=== PATIENT | female | born 1965 | race Caucasian/White ===

== ENCOUNTER 2016-09-25 14:23 | Emergency (ER) | payer MEDICAID ==
--- NOTE | 2016-09-25 14:57 | Emergency Department Record ---
History of Present Illness - General Chief Complaint: General Stated Complaint: WITHDRAWALS FROM ALCOHOL Time Seen by Provider: 09/25/16 14:56 Source: Patient Mode of Arrival: Ambulatory Limitations: No limitations - History of Present Illness Initial comments: The patient is here due to stating she needs some Ativan due to her stopping her normal chronic alcohol intake. She states she normally drinks about a fifth of liquor a day and last had a drink about 3 days ago. Now she is feeling slightly nauseated and is concerned she may go into withdrawal. She did quite drinking about a month ago and had no issues with withdrawal. She denies any hallucinations, tremors, vomiting, CP or SOB. Onset/Timin -: Days(s) - [place] Coma Scale Eye Response: (4) Open spontaneously Motor Response: (6) Obeys commands Verbal Response: (5) Oriented [place] Total: 15 - Related Data Home Medications Medication Instructions Recorded Confirmed Last Taken Glimepiride 6 mg PO DAILY 02/01/14 09/25/16 12/26/15 Metformin HCl 1,000 mg PO BID 02/01/14 09/25/16 12/26/15 Esomeprazole Magnesium [Nexium] 40 mg PO QAM 04/26/14 09/25/16 12/25/15 Insulin Detemir [Levemir] 40 unit SQ QAM 04/26/14 09/25/16 12/26/15 Insulin Regular, Human [Humulin R] 1 unit SC TIDAC 04/26/14 09/25/16 11/30/15 Lisinopril [Prinivil] 20 mg PO DAILY 04/26/14 09/25/16 12/26/15 Spironolactone [Aldactone] 50 mg PO BID 04/26/14 09/25/16 12/26/15 Propranolol HCl [Inderal LA] 120 mg PO BID 05/16/14 09/25/16 12/26/15 Insulin Detemir [Levemir] 65 units SQ QHS 04/05/15 09/25/16 12/25/15 Topiramate [Topamax] 150 mg PO BID 04/05/15 09/25/16 12/26/15 Exenatide Microspheres [Bydureon] 2 mg SQ Q7D vial 01/07/16 09/25/16 Unknown Apixaban [Eliquis] 5 mg PO DAILY 06/18/16 09/25/16 Unknown Topiramate [Topiramate] 50 mg PO DAILY 06/18/16 09/25/16 Unknown Venlafaxine HCl [Effexor Xr] 75 mg PO DAILY 09/25/16 09/25/16 Unknown Previous Rx's Medication Instructions Recorded Lorazepam [Ativan] 1 mg PO BID #5 tablet 09/25/16 Allergies Allergy/AdvReac Type Severity Reaction Status Date / Time gabapentin [From Neurontin] Allergy Intermediate HYPERSENSIT Verified 08/11/16 21:07 IVITY diphenhydramine Allergy Unknown HYPERSENSIT Verified 08/11/16 21:07 [DIPHENHYDRAMINE] IVITY Penicillins [PENICILLINS] Allergy Unknown HIVES Verified 08/11/16 21:07 [id number] Antimigraine Allergy Unknown HYPERSENSIT Verified 08/11/16 21:07 Agents IVITY [[id number] ANTIMIGRAINE AGENTS] cortisone Allergy ITCHING Verified 08/11/16 21:07 dicyclomine HCl [From Bentyl] AdvReac Intermediate BEHAVIORAL Verified 08/11/16 21:07 CHANGES ketorolac tromethamine AdvReac Intermediate ITCHING Verified 08/11/16 21:07 [From Toradol] Sulfa (Sulfonamide AdvReac Intermediate ITCHING Verified 08/11/16 21:07 Antibiotics) Travel Screening - Travel/Exposure Within Last 30 Days Have you traveled within the last 30 days?: No Review of Systems Constitutional: Denies: Chills, Fever Eyes: Denies: Eye discharge ENT: Denies: Congestion Respiratory: Denies: Cough, Dyspnea Cardiovascular: Denies: Chest pain Past Medical History - SOCIAL HISTORY Smoking Status: Light tobacco smoker (<10/day) Alcohol Use Comment: alcoholic Drug Use: None - RESPIRATORY Hx Respiratory Disorders: Yes Hx Pulmonary Embolism: Yes - CARDIOVASCULAR Hx Cardio Disorders: Yes Hx Palpitations: Yes - NEURO Hx Neuro Disorders: Yes Hx Dizziness: Yes Hx Headaches: Yes (migraines) Hx Seizures: (unsure of, being tested for) - GI Hx GI Disorders: Yes Hx Reflux: Yes - Hx Genitourinary Disorders: No - ENDOCRINE Hx Endocrine Disorders: Yes Hx Diabetes: Yes (type II) Hx Thyroid Disease: No - MUSCULOSKELETAL Hx Musculoskeletal Disorders: Yes Comment:: rib was out of place - PSYCH Hx Psych Problems: Yes Hx Anxiety: Yes Hx Depression: Yes - HEMATOLOGY/ONCOLOGY Hx Hematology/Oncology Disorders: Yes Hx Anemia: Yes (approx 2001) Hx Blood Transfusions: Yes Hx Blood Transfusion Reaction: No Family Medical History Any Significant Family History?: Yes Hx Diabetes: Father, Brother/Sister Hx Heart Disease: Father Physical Exam - General General Appearance: Alert, Oriented x3, Cooperative, No acute distress (The patient is very calm and cooperative and does not have any shakes or tremors.) - Head Head exam: Atraumatic, Normocephalic, Normal inspection - Eye Eye exam: Normal appearance, PERRL - ENT Throat exam: Normal inspection. negative: Tonsillar erythema, Tonsillar exudate - Neck Neck exam: Normal inspection, Full ROM. negative: Tenderness - Respiratory Respiratory exam: Normal lung sounds bilaterally. negative: Respiratory distress - Cardiovascular Cardiovascular Exam: Regular rate, Normal rhythm, Normal heart sounds - GI/Abdominal GI/Abdominal exam: Soft, Normal bowel sounds. negative: Tenderness - Extremities Extremities exam: Normal inspection, Full ROM, Normal capillary refill. negative: Tenderness - Neurological Neurological exam: Alert, Normal gait, Oriented X3. negative: Abnormal gait, Motor sensory deficit - Psychiatric Psychiatric exam: negative: Agitated, Anxious, Depressed, Flat affect, Homicidal ideation Course Vital Signs 09/25/16 14:39 Temperature 98.1 F Pulse Rate 76 Respiratory 18 Rate Blood Pressure 142/77 Pulse Ox 97 - Reevaluation(s) Reevaluation #1: The patient is doing very well at this time. She denies any tremors, nausea or vomiting. She is ambulating normally and feels ready for discharge. 09/25/16 16:08 Medical Decision Making - Data Complexity MDM Data: Labs Ordered and/or Reviewed - Lab Data Result diagrams: 09/25/16 15:35 09/25/16 15:35 Disposition Disposition: Discharge Clinical Impression: Anxiety Disposition: Home, Self-Care Condition: (1) Good Instructions: Anxiety (ED) Additional Instructions: Please continue your regular medicines and monitor your blood sugar daily. Take the Ativan as directed. Please see your PCP for recheck next week as planned. Return to the ER for any problems. Prescriptions: Lorazepam [Ativan] 1 mg PO BID #5 tablet Forms: Patient Portal Access Time of Disposition: 16:10
[2016-09-25] MEDS: LORAZEPAM 0.5 MG TABLET PO ONE (15:31)
[2016-09-25 16:01] LABS: ALB/GLOB RATIO 1.6 (1.1-1.8); ALKALINE PHOSPHATASE 86 U/L (38-126); ALT/SGPT 29 U/L (9-52); ANION GAP 10.1 (7-16); AST/SGOT 20 U/L (14-36); BILIRUBIN,TOTAL 0.16 mg/dL (0.2-1.3); BLOOD UREA NITROGEN 11 mg/dL (7-17); CARBON DIOXIDE 19.9 mmol/L (22-30); CREATININE 0.7 mg/dL (0.52-1.04); EST GLOMERULAR FILTRATION RATE > 60 ml/min; GLUCOSE,RANDOM 347 mg/dL (70-110); TOTAL PROTEIN 6.5 gm/dL (6.3-8.2)
[2016-09-25 16:02] LABS: BASO % 0.3 % (0-6); EOS % 0.9 % (0-6); GRAN % 65.3 % (47-80); HEMATOCRIT 38.4 % (35.0-47.0); HEMOGLOBIN 12.1 gm/dl (11.6-16.0); LYMPH % 24.6 % (16-45); MEAN CELL VOLUME 90.6 fl (81-97); MEAN CORPUSCULAR HEMOGLOBIN 28.5 pg (27-33); MEAN CORPUSCULAR HGB CONC 31.5 g/dl (32-36); MEAN PLATELET VOLUME 9.8 fl (7.4-10.4); MONO % 8.9 % (0-9); PLATELET COUNT 319 K/uL (130-400); RED BLOOD COUNT 4.24 M/uL (3.80-5.40); RED CELL DISTRIBUTION WIDTH 15.9 % (11.5-14.5); WHITE BLOOD COUNT W/O DIFF 7.4 K/uL (4.2-12.2)
== END 2016-09-25 16:19 | disposition home or self-care (01) ==
LOC: ER 14:23
DX: F41.9 Anxiety disorder, unspecified (principal); R11.0 Nausea; E11.9 Type 2 diabetes mellitus without complications; Z79.4 Long term (current) use of insulin; F10.20 Alcohol dependence, uncomplicated
CPT/HCPCS: 99283 ×2; 85025; 80053; G0480; 80320

== ENCOUNTER 2016-10-18 16:56 | Emergency (ER) | payer MEDICAID ==
[2016-10-18 17:49] LABS: BASO % 0.3 % (0-6); EOS % 2.9 % (0-6); GRAN % 61.8 % (47-80); HEMATOCRIT 38.9 % (35.0-47.0); HEMOGLOBIN 12.5 gm/dl (11.6-16.0); MEAN CELL VOLUME 86.8 fl (81-97); MEAN CORPUSCULAR HEMOGLOBIN 27.9 pg (27-33); MEAN CORPUSCULAR HGB CONC 32.1 g/dl (32-36); MEAN PLATELET VOLUME 9.1 fl (7.4-10.4); PLATELET COUNT 338 K/uL (130-400); RED BLOOD COUNT 4.48 M/uL (3.80-5.40); RED CELL DISTRIBUTION WIDTH 15.4 % (11.5-14.5); WHITE BLOOD COUNT W/O DIFF 5.8 K/uL (4.2-12.2)
[2016-10-18 18:02] LABS: ALB/GLOB RATIO 1.4 (1.1-1.8); ALBUMIN 4.2 gm/dL (3.5-5.0); ALKALINE PHOSPHATASE 80 U/L (38-126); ALT/SGPT 20 U/L (9-52); ANION GAP 18.1 (7-16); AST/SGOT 14 U/L (14-36); BLOOD UREA NITROGEN 17 mg/dL (7-17); CARBON DIOXIDE 22.9 mmol/L (22-30); CREATININE 0.7 mg/dL (0.52-1.04); EST GLOMERULAR FILTRATION RATE > 60 ml/min; GLUCOSE,RANDOM 173 mg/dL (70-110); TOTAL PROTEIN 7.1 gm/dL (6.3-8.2)
--- NOTE | 2016-10-18 18:02 | Emergency Department Record ---
History of Present Illness - General Chief Complaint: Slurred speech Stated Complaint: SPEECH SLURRING Time Seen by Provider: 10/18/16 17:34 Source: Patient Mode of Arrival: Ambulatory - History of Present Illness Initial Comments: Assumed care at 6 p.m due to shift change. Patient states she is here because she was told she was having difficulty walking straight and was slurring her speech. She states she was unaware of this and denies taking any medications in excess. She currently denies fierro, visions changes, cp, ab, asael. She does states she is very thirsty. Awaiting CT results of her head. Onset/Timin -: Hour(s) Location: Speech Improves With: None Treatments Prior to Arrival: None - [place] Coma Scale Eye Response: (4) Open spontaneously Motor Response: (6) Obeys commands Verbal Response: (4) Confused conversation [place] Total: 14 - Symptoms of Stroke Onset of Symptoms Date: 10/18/16 Onset of Symptoms Time: 13:00 Symptoms of stroke: Dizziness, Slurred Speech, Unable to Think Clearly, Unsteady When Walking - Related Data Home Medications: Home Medications Medication Instructions Recorded Confirmed Last Taken Glimepiride 6 mg PO DAILY 02/01/14 10/18/16 1 Day Ago Metformin HCl 1,000 mg PO BID 02/01/14 10/18/16 1 Day Ago Esomeprazole Magnesium [Nexium] 40 mg PO QAM 04/26/14 10/18/16 1 Day Ago Insulin Detemir [Levemir] 40 unit SQ QAM 04/26/14 10/18/16 1 Day Ago Insulin Regular, Human [Humulin R] 1 unit SC TIDAC 04/26/14 10/18/16 1 Day Ago Lisinopril [Prinivil] 20 mg PO DAILY 04/26/14 10/18/16 1 Day Ago Spironolactone [Aldactone] 50 mg PO DAILY 04/26/14 10/18/16 1 Day Ago Propranolol HCl [Inderal LA] 120 mg PO BID 05/16/14 10/18/16 1 Day Ago Insulin Detemir [Levemir] 65 units SQ QHS 04/05/15 10/18/16 1 Day Ago Topiramate [Topamax] 150 mg PO BID 04/05/15 10/18/16 1 Day Ago Exenatide Microspheres [Bydureon] 2 mg SQ Q7D vial 01/07/16 10/18/16 1 Day Ago Apixaban [Eliquis] 5 mg PO DAILY 06/18/16 10/18/16 1 Day Ago Venlafaxine HCl [Effexor Xr] 75 mg PO DAILY 09/25/16 10/18/16 1 Day Ago Amlodipine Besylate [Norvasc] 10 mg PO DAILY 10/18/16 10/18/16 1 Day Ago Atorvastatin Calcium [Lipitor] 20 mg PO DAILY 10/18/16 10/18/16 1 Day Ago Chlorthalidone 50 mg PO DAILY 10/18/16 10/18/16 1 Day Ago Clonidine Tts-2 [Catapres Tts-2] 1 patch TOP Q7D 10/18/16 10/18/16 1 Day Ago Famotidine [Pepcid] 40 mg PO DAILY 10/18/16 10/18/16 1 Day Ago Hydrocodone/Acetaminophen 1 - 2 tab PO Q6H PRN 10/18/16 10/18/16 1 Day Ago [Hydrocodone/Acetaminophen 5mg/325mg] Loratadine [Allergy] 10 mg PO DAILY 10/18/16 10/18/16 1 Day Ago Phenylephrine HCl [Nasal Rusk] 30 ml NS DAILY 10/18/16 10/18/16 1 Day Ago Trazodone HCl 100 mg PO QHS 10/18/16 10/18/16 1 Day Ago Previous Rx's Medication Instructions Recorded Lorazepam [Ativan] 1 mg PO BID #5 tablet 09/25/16 Allergies/Adverse Reactions: Allergies Allergy/AdvReac Type Severity Reaction Status Date / Time gabapentin [From Neurontin] Allergy Intermediate HYPERSENSIT Verified 10/18/16 17:49 IVITY diphenhydramine Allergy Unknown HYPERSENSIT Verified 10/18/16 17:49 [DIPHENHYDRAMINE] IVITY Penicillins [PENICILLINS] Allergy Unknown HIVES Verified 10/18/16 17:49 [id number] Antimigraine Allergy Unknown HYPERSENSIT Verified 10/18/16 17:49 Agents IVITY [[id number] ANTIMIGRAINE AGENTS] cortisone Allergy ITCHING Verified 10/18/16 17:49 metoclopramide Allergy HYPERSENSIT Verified 10/18/16 17:50 IVITY promethazine Allergy HYPERSENSIT Verified 10/18/16 17:50 IVITY trimethoprim Allergy ITCHING Verified 10/18/16 17:50 dicyclomine HCl [From Bentyl] AdvReac Intermediate BEHAVIORAL Verified 10/18/16 17:49 CHANGES ketorolac tromethamine AdvReac Intermediate ITCHING Verified 10/18/16 17:49 [From Toradol] Sulfa (Sulfonamide AdvReac Intermediate ITCHING Verified 10/18/16 17:49 Antibiotics) cephalexin AdvReac VOMITING Verified 10/18/16 17:50 Travel Screening - Travel/Exposure Within Last 30 Days Have you traveled within the last 30 days?: No - Travel/Exposure Within Last Year Have you traveled outside the [place] in the last year?: No - Additonal Travel Details Have you been exposed to anyone with a communicable illness?: No - Travel Symptoms Symptom Screening: None Review of Systems Reviewed: No additional complaints except as noted below Constitutional: Reports: As per HPI. Denies: Chills, Fever, Malaise, Night sweats, Weakness, Weight change Eyes: Reports: As per HPI. Denies: Eye discharge, Eye pain, Photophobia, Vision change ENT: Reports: As per HPI. Denies: Congestion, Dental pain, Ear pain, Epistaxis , Hearing loss, Throat pain Respiratory: Reports: As per HPI. Denies: Cough, Dyspnea, Hemoptysis, Stridor, Wheezes Cardiovascular: Reports: As per HPI. Denies: Arrhythmia, Chest pain, Dyspnea on exertion, Edema, Murmurs, Orthopnea, Palpitations, Paroxysmal nocturnal dyspnea, Rheumatic Fever, Syncope Endocrine: Reports: As per HPI. Denies: Fatigue, Heat or cold intolerance, Polydipsia, Polyuria Gastrointestinal: Reports: As per HPI. Denies: Abdominal pain, Constipation, Diarrhea, Hematemesis, Hematochezia, Melena, Nausea, Vomiting Genitourinary: Reports: As per HPI. Denies: Abnormal menses, Discharge, Dyspareunia, Dysuria, Frequency, Hematuria, Incontinence, Retention, Urgency Musculoskeletal: Reports: As per HPI. Denies: Arthralgia, Back pain, Gout, Joint swelling, Myalgia, Neck pain Skin: Reports: As per HPI. Denies: Bruising, Change in color, Change in hair/ nails, Lesions, Pruritus, Rash Neurological: Reports: As per HPI. Denies: Abnormal gait, Confusion, Headache, Numbness, Paresthesias, Seizure, Tingling, Tremors, Vertigo, Weakness Psychiatric: Reports: As per HPI. Denies: Anxiety, Auditory hallucinations, Depression, Homicidal thoughts, Suicidal thoughts, Visual hallucinations Hematological/Lymphatic: Reports: As per HPI. Denies: Anemia, Blood Clots, Easy bleeding, Easy bruising, Swollen glands Past Medical History - SOCIAL HISTORY Smoking Status: Light tobacco smoker (<10/day) Alcohol Use: None Drug Use: None - RESPIRATORY Hx Respiratory Disorders: Yes Hx Pulmonary Embolism: Yes - CARDIOVASCULAR Hx Cardio Disorders: Yes Hx Palpitations: Yes - NEURO Hx Neuro Disorders: Yes Hx Dizziness: Yes Hx Headaches: Yes (migraines) Hx Seizures: (unsure of, being tested for) - GI Hx GI Disorders: Yes Hx Reflux: Yes - Hx Genitourinary Disorders: No - ENDOCRINE Hx Endocrine Disorders: Yes Hx Diabetes: Yes (type II) Hx Thyroid Disease: No - MUSCULOSKELETAL Hx Musculoskeletal Disorders: Yes Comment:: rib was out of place - PSYCH Hx Psych Problems: Yes Hx Anxiety: Yes Hx Depression: Yes - HEMATOLOGY/ONCOLOGY Hx Hematology/Oncology Disorders: Yes Hx Anemia: Yes (approx 2001) Hx Blood Transfusions: Yes Hx Blood Transfusion Reaction: No Family Medical History Any Significant Family History?: Yes Hx Diabetes: Father, Brother/Sister Hx Heart Disease: Father Physical Exam - General General Appearance: Alert, Oriented x3, Cooperative, No acute distress (mouth seems very dry and her slurring of speech is very mild and intermittent.) - Head Head exam: Normal inspection - Eye Eye exam: Normal appearance, PERRL Pupils: Normal accommodation - ENT ENT exam: Normal exam, Mucous membranes moist, Normal external ear exam, Normal orophraynx, TM's normal bilaterally Ear exam: Normal external inspection. negative: External canal tenderness Nasal Exam: Normal inspection. negative: Discharge, Sinus tenderness Mouth exam: Normal external inspection, Tongue normal Teeth exam: Normal inspection. negative: Dental caries Throat exam: Normal inspection. negative: Tonsillar erythema, Tonsillar exudate - Neck Neck exam: Normal inspection, Full ROM. negative: Tenderness - Respiratory Respiratory exam: Normal lung sounds bilaterally. negative: Respiratory distress - Cardiovascular Cardiovascular Exam: Regular rate, Normal rhythm, Normal heart sounds - GI/Abdominal GI/Abdominal exam: Soft, Normal bowel sounds. negative: Tenderness - Rectal Rectal exam: Deferred - exam: Deferred - Extremities Extremities exam: Normal inspection, Full ROM, Normal capillary refill. negative: Tenderness - Back Back exam: Reports: Normal inspection, Full ROM. Denies: Muscle spasm, Rash noted, Tenderness - Neurological Neurological exam: Alert, CN II-XII intact, Oriented X3, Reflexes normal - Psychiatric Psychiatric exam: Normal affect, Normal mood - Skin Skin exam: Dry, Intact, Normal color, Warm Course Vital Signs 10/18/16 17:02 Temperature 97.9 F Pulse Rate 81 Respiratory 18 Rate Blood Pressure 99/53 Pulse Ox 98 - Reevaluation(s) Reevaluation #1: Patient is sitting upright on cart dry heaving in basin. Zofran ordered. IV fluids infusing. Patient again denies taking any MAP's type medications. 10/18/16 19:26 Reevaluation #2: Patient ambulated to bathroom without difficulty with a normal gait. IV liter almost complete. UDS shows opiates and tricyclics in her urine. Son aware. HE was advised to lock up her medications and distribute them to her in a controlled fashion, or else have a responsible delegated person do this. 10/18/16 20:01 10/18/16 20:03 Reevaluation #3: The patient states Dr. Patel (sp?) used to be her Dr. but she abused prescriptions and is no longer her physician. 10/18/16 20:19 Medical Decision Making - Management Options MDM Management: No Additional Work-up Planned - Data Complexity MDM Data: Labs Ordered and/or Reviewed, EKG Ordered and/or Reviewed (per Dr. Ellis EKG isnormal and unchanged from prior.) - Lab Data Result diagrams: 10/18/16 17:25 10/18/16 17:25 Lab Results 10/18/16 10/18/16 10/18/16 Range/Units 17:25 17:25 17:25 WBC 5.8 (4.2-12.2) K/uL RBC 4.48 (3.80-5.40) M/uL Hgb 12.5 (11.6-16.0) gm/dl Hct 38.9 (35.0-47.0) % MCV 86.8 (81-97) fl MCH 27.9 (27-33) pg MCHC 32.1 (32-36) g/dl RDW 15.4 H (11.5-14.5) % Plt Count 338 (130-400) K/uL MPV 9.1 (7.4-10.4) fl Gran % 61.8 (47-80) % Lymphocytes % 25.0 (16-45) % Monocytes % 10.0 H (0-9) % Eosinophils % 2.9 (0-6) % Basophils % 0.3 (0-6) % VBG pH 7.3 L (7.32-7.41) POC Glucose 149 H (70-110) mg/dL - EKG Data EKG: Normal EKG Disposition Disposition: Discharge Clinical Impression: Prescription drug abuse, Slurring of speech Disposition: Home, Self-Care Condition: (1) Good Instructions: Polysubstance Abuse (ED) Additional Instructions: Have medications given in a controlled manner and documented by family or medical personnel. Take medications only as prescribed. Follow up with PCP. Give physician referral list. Forms: Patient Portal Access
[2016-10-18] MEDS ORDERED: 0.9 % SODIUM CHLORIDE 1,000 ML BAG IV ONE (18:30)
[2016-10-18] MEDS ORDERED: ONDANSETRON HCL IV 4 MG/2 ML VIAL IVP ONE (19:24)
[2016-10-18 19:46] LABS: URINE APPEARANCE CLEAR; URINE BILIRUBIN NEGATIVE (NEGATIVE); URINE BLOOD NEGATIVE (NEGATIVE); URINE COLOR YELLOW; URINE GLUCOSE (UA) NEGATIVE (NEGATIVE); URINE KETONE NEGATIVE (NEGATIVE); URINE LEUKOCYTE ESTERASE NEGATIVE (NEGATIVE); URINE NITRITE NEGATIVE (NEGATIVE); URINE PROTEIN NEGATIVE (NEGATIVE); URINE UROBILINOGEN 0.2 E.U./dL (0.20 - 1.00)
[2016-10-18 19:58] LABS: AMPHETAMINE SCREEN URINE NOT DETECTED; BARBITURATE SCREEN URINE NOT DETECTED; BENZODIAZEPINE SCREEN URINE NOT DETECTED; COCAINE SCREEN URINE NOT DETECTED; METHADONE SCREEN URINE NOT DETECTED; METHAMPHETAMINE SCREEN NOT DETECTED; OPIATE SCREEN URINE DETECTED; OXYCODONE SCREEN URINE NOT DETECTED; PHENCYCLIDINE SCREEN URINE NOT DETECTED; PROPOXYPHENE SCREEN URINE NOT DETECTED; THC SCREEN URINE NOT DETECTED; TRICYCLIC ANTIDEPRESSANT SCRN DETECTED
--- NOTE | 2016-10-19 07:20 | Emergency Department Record ---
History of Present Illness - General Chief Complaint: Slurred speech Stated Complaint: SPEECH SLURRING Time Seen by Provider: 10/18/16 17:34 Source: Patient Mode of Arrival: Ambulatory Limitations: No limitations - History of Present Illness Initial Comments: pt brought in by son for slurred speech. pt states she has had a cough and has taken cough and cold meds. Onset/Timin -: Hour(s) Location: Speech History of same: Yes (hx of overmedication) Severity: Mild Quality: Improving Improves With: None Context: Other (started 8 hrs ago) Treatments Prior to Arrival: None - [place] Coma Scale Eye Response: (4) Open spontaneously Motor Response: (6) Obeys commands Verbal Response: (4) Confused conversation [place] Total: 14 - Symptoms of Stroke Onset of Symptoms Date: 10/18/16 Onset of Symptoms Time: 13:00 Symptoms of stroke: Dizziness, Slurred Speech, Unable to Think Clearly, Unsteady When Walking - Related Data Home Medications: Home Medications Medication Instructions Recorded Confirmed Last Taken Glimepiride 6 mg PO DAILY 02/01/14 10/18/16 1 Day Ago Metformin HCl 1,000 mg PO BID 02/01/14 10/18/16 1 Day Ago Esomeprazole Magnesium [Nexium] 40 mg PO QAM 04/26/14 10/18/16 1 Day Ago Insulin Detemir [Levemir] 40 unit SQ QAM 04/26/14 10/18/16 1 Day Ago Insulin Regular, Human [Humulin R] 1 unit SC TIDAC 04/26/14 10/18/16 1 Day Ago Lisinopril [Prinivil] 20 mg PO DAILY 04/26/14 10/18/16 1 Day Ago Spironolactone [Aldactone] 50 mg PO DAILY 04/26/14 10/18/16 1 Day Ago Propranolol HCl [Inderal LA] 120 mg PO BID 05/16/14 10/18/16 1 Day Ago Insulin Detemir [Levemir] 65 units SQ QHS 04/05/15 10/18/16 1 Day Ago Topiramate [Topamax] 150 mg PO BID 04/05/15 10/18/16 1 Day Ago Exenatide Microspheres [Bydureon] 2 mg SQ Q7D vial 01/07/16 10/18/16 1 Day Ago Apixaban [Eliquis] 5 mg PO DAILY 06/18/16 10/18/16 1 Day Ago Venlafaxine HCl [Effexor Xr] 75 mg PO DAILY 09/25/16 10/18/16 1 Day Ago Amlodipine Besylate [Norvasc] 10 mg PO DAILY 10/18/16 10/18/16 1 Day Ago Atorvastatin Calcium [Lipitor] 20 mg PO DAILY 10/18/16 10/18/16 1 Day Ago Chlorthalidone 50 mg PO DAILY 10/18/16 10/18/16 1 Day Ago Clonidine Tts-2 [Catapres Tts-2] 1 patch TOP Q7D 10/18/16 10/18/16 1 Day Ago Famotidine [Pepcid] 40 mg PO DAILY 10/18/16 10/18/16 1 Day Ago Hydrocodone/Acetaminophen 1 - 2 tab PO Q6H PRN 10/18/16 10/18/16 1 Day Ago [Hydrocodone/Acetaminophen 5mg/325mg] Loratadine [Allergy] 10 mg PO DAILY 10/18/16 10/18/16 1 Day Ago Phenylephrine HCl [Nasal [place]] 30 ml NS DAILY 10/18/16 10/18/16 1 Day Ago Trazodone HCl 100 mg PO QHS 10/18/16 10/18/16 1 Day Ago Previous Rx's Medication Instructions Recorded Lorazepam [Ativan] 1 mg PO BID #5 tablet 09/25/16 Allergies/Adverse Reactions: Allergies Allergy/AdvReac Type Severity Reaction Status Date / Time gabapentin [From Neurontin] Allergy Intermediate HYPERSENSIT Verified 10/18/16 17:49 IVITY diphenhydramine Allergy Unknown HYPERSENSIT Verified 10/18/16 17:49 [DIPHENHYDRAMINE] IVITY Penicillins [PENICILLINS] Allergy Unknown HIVES Verified 10/18/16 17:49 [id number] Antimigraine Allergy Unknown HYPERSENSIT Verified 10/18/16 17:49 Agents IVITY [[id number] ANTIMIGRAINE AGENTS] cortisone Allergy ITCHING Verified 10/18/16 17:49 metoclopramide Allergy HYPERSENSIT Verified 10/18/16 17:50 IVITY promethazine Allergy HYPERSENSIT Verified 10/18/16 17:50 IVITY trimethoprim Allergy ITCHING Verified 10/18/16 17:50 dicyclomine HCl [From Bentyl] AdvReac Intermediate BEHAVIORAL Verified 10/18/16 17:49 CHANGES ketorolac tromethamine AdvReac Intermediate ITCHING Verified 10/18/16 17:49 [From Toradol] Sulfa (Sulfonamide AdvReac Intermediate ITCHING Verified 10/18/16 17:49 Antibiotics) cephalexin AdvReac VOMITING Verified 10/18/16 17:50 Travel Screening - Travel/Exposure Within Last 30 Days Have you traveled within the last 30 days?: No - Travel/Exposure Within Last Year Have you traveled outside the [place] in the last year?: No - Additonal Travel Details Have you been exposed to anyone with a communicable illness?: No - Travel Symptoms Symptom Screening: None Review of Systems Reviewed: No additional complaints except as noted below Constitutional: Reports: As per HPI. Denies: Chills, Fever, Malaise, Night sweats, Weakness, Weight change Eyes: Reports: As per HPI. Denies: Eye discharge, Eye pain, Photophobia, Vision change ENT: Reports: As per HPI. Denies: Congestion, Dental pain, Ear pain, Epistaxis , Hearing loss, Throat pain Respiratory: Reports: As per HPI. Denies: Cough, Dyspnea, Hemoptysis, Stridor, Wheezes Cardiovascular: Reports: As per HPI. Denies: Arrhythmia, Chest pain, Dyspnea on exertion, Edema, Murmurs, Orthopnea, Palpitations, Paroxysmal nocturnal dyspnea, Rheumatic Fever, Syncope Endocrine: Reports: As per HPI. Denies: Fatigue, Heat or cold intolerance, Polydipsia, Polyuria Gastrointestinal: Reports: As per HPI. Denies: Abdominal pain, Constipation, Diarrhea, Hematemesis, Hematochezia, Melena, Nausea, Vomiting Genitourinary: Reports: As per HPI. Denies: Abnormal menses, Discharge, Dyspareunia, Dysuria, Frequency, Hematuria, Incontinence, Retention, Urgency Musculoskeletal: Reports: As per HPI. Denies: Arthralgia, Back pain, Gout, Joint swelling, Myalgia, Neck pain Skin: Reports: As per HPI. Denies: Bruising, Change in color, Change in hair/ nails, Lesions, Pruritus, Rash Neurological: Reports: As per HPI. Denies: Abnormal gait, Confusion, Headache, Numbness, Paresthesias, Seizure, Tingling, Tremors, Vertigo, Weakness Psychiatric: Reports: As per HPI. Denies: Anxiety, Auditory hallucinations, Depression, Homicidal thoughts, Suicidal thoughts, Visual hallucinations Hematological/Lymphatic: Reports: As per HPI. Denies: Anemia, Blood Clots, Easy bleeding, Easy bruising, Swollen glands Past Medical History - SOCIAL HISTORY Smoking Status: Light tobacco smoker (<10/day) Alcohol Use: None Drug Use: None - RESPIRATORY Hx Respiratory Disorders: Yes Hx Pulmonary Embolism: Yes - CARDIOVASCULAR Hx Cardio Disorders: Yes Hx Palpitations: Yes - NEURO Hx Neuro Disorders: Yes Hx Dizziness: Yes Hx Headaches: Yes (migraines) Hx Seizures: (unsure of, being tested for) - GI Hx GI Disorders: Yes Hx Reflux: Yes - Hx Genitourinary Disorders: No - ENDOCRINE Hx Endocrine Disorders: Yes Hx Diabetes: Yes (type II) Hx Thyroid Disease: No - MUSCULOSKELETAL Hx Musculoskeletal Disorders: Yes Comment:: rib was out of place - PSYCH Hx Psych Problems: Yes Hx Anxiety: Yes Hx Depression: Yes - HEMATOLOGY/ONCOLOGY Hx Hematology/Oncology Disorders: Yes Hx Anemia: Yes (approx 2001) Hx Blood Transfusions: Yes Hx Blood Transfusion Reaction: No Family Medical History Any Significant Family History?: Yes Hx Diabetes: Father, Brother/Sister Hx Heart Disease: Father Physical Exam - General General Appearance: Alert, Oriented x3, Cooperative, Mild distress - Head Head exam: Normal inspection - Eye Eye exam: Normal appearance, PERRL, EOMI Pupils: Normal accommodation - ENT ENT exam: Normal exam, Mucous membranes moist, Normal external ear exam, Normal orophraynx Ear exam: Normal external inspection. negative: External canal tenderness Nasal Exam: Normal inspection. negative: Discharge, Sinus tenderness Mouth exam: Normal external inspection, Tongue normal Teeth exam: Normal inspection. negative: Dental caries Throat exam: Normal inspection. negative: Tonsillar erythema, Tonsillar exudate - Neck Neck exam: Normal inspection, Full ROM. negative: Tenderness - Respiratory Respiratory exam: Normal lung sounds bilaterally. negative: Respiratory distress - Cardiovascular Cardiovascular Exam: Regular rate, Normal rhythm, Normal heart sounds - GI/Abdominal GI/Abdominal exam: Soft, Normal bowel sounds. negative: Tenderness - Rectal Rectal exam: Deferred - exam: Deferred - Extremities Extremities exam: Normal inspection, Full ROM, Normal capillary refill. negative: Tenderness - Back Back exam: Reports: Normal inspection, Full ROM. Denies: Muscle spasm, Rash noted, Tenderness - Neurological Neurological exam: Alert, CN II-XII intact, Normal gait, Oriented X3, Other ( slurring speech) - Psychiatric Psychiatric exam: Normal affect, Normal mood - Skin Skin exam: Dry, Intact, Normal color, Warm Course Vital Signs 10/18/16 10/18/16 10/18/16 17:02 18:23 20:49 Temperature 97.9 F Pulse Rate 81 87 Pulse Rate [ 83 Pulse Ox Probe] Respiratory 18 22 18 Rate Blood Pressure 99/53 107/66 Blood Pressure 103/64 [Right Arm] Pulse Ox 98 94 L 96 - Reevaluation(s) Reevaluation #1: 10/19/16 07:26 care turned over [address] dr porter at 6:15pm Medical Decision Making - Lab Data Result diagrams: 10/18/16 17:25 10/18/16 17:25 Lab Results 10/18/16 10/18/16 10/18/16 Range/Units 17:25 17:25 17:25 WBC 5.8 (4.2-12.2) K/uL RBC 4.48 (3.80-5.40) M/uL Hgb 12.5 (11.6-16.0) gm/dl Hct 38.9 (35.0-47.0) % MCV 86.8 (81-97) fl MCH 27.9 (27-33) pg MCHC 32.1 (32-36) g/dl RDW 15.4 H (11.5-14.5) % Plt Count 338 (130-400) K/uL MPV 9.1 (7.4-10.4) fl Gran % 61.8 (47-80) % Lymphocytes % 25.0 (16-45) % Monocytes % 10.0 H (0-9) % Eosinophils % 2.9 (0-6) % Basophils % 0.3 (0-6) % VBG pH 7.3 L (7.32-7.41) Sodium 136 (136-145) mmol/L Potassium 3.7 (3.5-5.1) mmol/L Chloride 95 L (98-107) mmol/L Carbon Dioxide 22.9 (22-30) mmol/L Anion Gap 18.1 H (7-16) BUN 17 (7-17) mg/dL Creatinine 0.7 (0.52-1.04) mg/dL Estimated GFR > 60 ml/min POC Glucose (70-110) mg/dL Random Glucose 173 H (70-110) mg/dL Calcium 9.5 (8.5-10.1) mg/dL Total Bilirubin 0.10 L (0.2-1.3) mg/dL AST 14 (14-36) U/L ALT 20 (9-52) U/L Alkaline Phosphatase 80 (38-126) U/L Total Protein 7.1 (6.3-8.2) gm/dL Albumin 4.2 (3.5-5.0) gm/dL Globulin 2.9 (1.4-4.8) gm/dL Albumin/Globulin Ratio 1.4 (1.1-1.8) Urine Color Urine Appearance Urine pH (5.0-8.0) Ur Specific [place] (1.002-1.030) Urine Protein (NEGATIVE) Urine Glucose (UA) (NEGATIVE) Urine Ketones (NEGATIVE) Urine Blood (NEGATIVE) Urine Nitrite (NEGATIVE) Urine Bilirubin (NEGATIVE) Urine Urobilinogen (0.20 - 1.00) E.U./dL Ur Leukocyte Esterase (NEGATIVE) Urine Opiates Screen Ur Oxycodone Screen Urine Methadone Screen Ur Propoxyphene Screen Ur Barbituates Screen Ur Tricyclics Screen Ur Phencyclidine Scrn Ur Amphetamine Screen U Methamphetamines Scrn U Benzodiazepines Scrn Urine Cocaine Screen Urine Cannabis Screen 10/18/16 10/18/16 10/18/16 Range/Units 17:25 19:35 19:35 WBC (4.2-12.2) K/uL RBC (3.80-5.40) M/uL Hgb (11.6-16.0) gm/dl Hct (35.0-47.0) % MCV (81-97) fl MCH (27-33) pg MCHC (32-36) g/dl RDW (11.5-14.5) % Plt Count (130-400) K/uL MPV (7.4-10.4) fl Gran % (47-80) % Lymphocytes % (16-45) % Monocytes % (0-9) % Eosinophils % (0-6) % Basophils % (0-6) % VBG pH (7.32-7.41) Sodium (136-145) mmol/L Potassium (3.5-5.1) mmol/L Chloride (98-107) mmol/L Carbon Dioxide (22-30) mmol/L Anion Gap (7-16) BUN (7-17) mg/dL Creatinine (0.52-1.04) mg/dL Estimated GFR ml/min POC Glucose 149 H (70-110) mg/dL Random Glucose (70-110) mg/dL Calcium (8.5-10.1) mg/dL Total Bilirubin (0.2-1.3) mg/dL AST (14-36) U/L ALT (9-52) U/L Alkaline Phosphatase (38-126) U/L Total Protein (6.3-8.2) gm/dL Albumin (3.5-5.0) gm/dL Globulin (1.4-4.8) gm/dL Albumin/Globulin Ratio (1.1-1.8) Urine Color Yellow Urine Appearance Clear Urine pH 7.0 (5.0-8.0) Ur Specific [place] 1.010 (1.002-1.030) Urine Protein Negative (NEGATIVE) Urine Glucose (UA) Negative (NEGATIVE) Urine Ketones Negative (NEGATIVE) Urine Blood Negative (NEGATIVE) Urine Nitrite Negative (NEGATIVE) Urine Bilirubin Negative (NEGATIVE) Urine Urobilinogen 0.2 (0.20 - 1.00) E.U./dL Ur Leukocyte Esterase Negative (NEGATIVE) Urine Opiates Screen Detected Ur Oxycodone Screen Not detected Urine Methadone Screen Not detected Ur Propoxyphene Screen Not detected Ur Barbituates Screen Not detected Ur Tricyclics Screen Detected Ur Phencyclidine Scrn Not detected Ur Amphetamine Screen Not detected U Methamphetamines Scrn Not detected U Benzodiazepines Scrn Not detected Urine Cocaine Screen Not detected Urine Cannabis Screen Not detected Disposition Clinical Impression: Prescription drug abuse, Slurring of speech Disposition: Home, Self-Care Condition: (1) Good Instructions: Polysubstance Abuse (ED) Additional Instructions: Have medications given in a controlled manner and documented by family or medical personnel. Take medications only as prescribed. Follow up with PCP. Give physician referral list. Forms: Patient Portal Access
--- NOTE | 2016-10-23 08:56 | CT SCAN REPORT ---
EXAM: CT SCAN OF THE BRAIN WITHOUT CONTRAST HISTORY: CONFUSION AND SLURRED SPEECH TODAY. MENTAL STATUS CHANGES. TECHNIQUE: Standard CT imaging of the brain was performed in the axial plane without contrast. Additional coronal and sagittal reformatted images were also performed. Comparison: 10/04/15. FINDINGS: The ventricles and subarachnoid spaces are normal. There is no mass , mass effect, intracranial hemorrhage, visible acute infarct, or abnormal extraaxial fluid. The skull is intact. The orbits, sinuses, and mastoids are normal. IMPRESSION: NEGATIVE NONCONTRAST CT SCAN OF THE BRAIN. JOB NUMBER: [id number] MTDD
== END 2016-10-18 20:52 | disposition home or self-care (01) ==
LOC: ER 16:56
DX: F11.129 Opioid abuse with intoxication, unspecified (principal); F19.129 Other psychoactive substance abuse with intoxication, unspecified; R47.81 Slurred speech; R05 Cough; R42 Dizziness and giddiness; R26.2 Difficulty in walking, not elsewhere classified; E11.9 Type 2 diabetes mellitus without complications; Z79.4 Long term (current) use of insulin; F17.210 Nicotine dependence, cigarettes, uncomplicated; Z79.899 Other long term (current) drug therapy
CPT/HCPCS: 99284 ×2; 96374; 82800; 85025; 80048; 80053; 36416; 82948; 81003; 70450; 93005; 93010; G0477; J2405

== ENCOUNTER 2016-12-02 15:23 | Emergency (ER) | payer MEDICAID ==
[2016-12-02] MEDS ORDERED: HYDROCODONE/APAP 7.5/325MG TABLET PO ONE (15:35)
--- NOTE | 2016-12-02 15:41 | Emergency Department Record ---
History of Present Illness - General Chief Complaint: Fall Injury Stated Complaint: fall Time Seen by Provider: 12/02/16 15:34 Source: Patient Mode of Arrival: Ambulatory Limitations: No limitations - History of Present Illness Initial Comments: 51 yo female presents after tripping as she stepped on to her porch. She landed forward injuring her left shoulder and both knees. She did not hit her head or face but her right #3 filling fell out. She did not hit her chin or jaw. No abrasions to the face or head. She has bruising on both knees. She denies any new chest, abdominal or back pain. No neck pain. She does have left sided rib fractures from about 2-3 months ago. She had been admitted to [facility] at that time. Her pain from the ribs comes and goes. It is mild today. MD Complaint: Fall Onset/Timin -: Minutes(s) Fall From: Standing When Fall Occurred: Just prior to arrival Fall Witnessed: No Place Fall Occurred: Home Loss of Consciousness: None Prolonged Down Time?: No Symptoms Prior to Fall: None Location - Extremities: Left: Shoulder, Knee, Right: Knee Severity: Moderate Severity scale (1-10): 9 Quality: Aching Associated Symptoms: Denies - [place] Coma Scale Eye Response: (4) Open spontaneously Motor Response: (6) Obeys commands Verbal Response: (5) Oriented [place] Total: 15 - Related Data Home Medications Medication Instructions Recorded Confirmed Last Taken Glimepiride 6 mg PO DAILY 02/01/14 12/02/16 1 Day Ago Metformin HCl 1,000 mg PO BID 02/01/14 12/02/16 1 Day Ago Esomeprazole Magnesium [Nexium] 40 mg PO QAM 04/26/14 12/02/16 1 Day Ago Insulin Detemir [Levemir] 40 unit SQ QAM 04/26/14 12/02/16 1 Day Ago Insulin Regular, Human [Humulin R] 1 unit SC TIDAC 04/26/14 12/02/16 1 Day Ago Lisinopril [Prinivil] 20 mg PO DAILY 04/26/14 12/02/16 1 Day Ago Spironolactone [Aldactone] 50 mg PO DAILY 04/26/14 12/02/16 1 Day Ago Propranolol HCl [Inderal LA] 120 mg PO BID 05/16/14 12/02/16 1 Day Ago Insulin Detemir [Levemir] 65 units SQ QHS 04/05/15 12/02/16 1 Day Ago Topiramate [Topamax] 150 mg PO BID 04/05/15 12/02/16 1 Day Ago Exenatide Microspheres [Bydureon] 2 mg SQ Q7D vial 01/07/16 12/02/16 1 Day Ago Apixaban [Eliquis] 5 mg PO DAILY 06/18/16 12/02/16 1 Day Ago Venlafaxine HCl [Effexor Xr] 75 mg PO DAILY 09/25/16 12/02/16 1 Day Ago Amlodipine Besylate [Norvasc] 10 mg PO DAILY 10/18/16 12/02/16 1 Day Ago Atorvastatin Calcium [Lipitor] 20 mg PO DAILY 10/18/16 12/02/16 1 Day Ago Chlorthalidone 50 mg PO DAILY 10/18/16 12/02/16 1 Day Ago Clonidine Tts-2 [Catapres Tts-2] 1 patch TOP Q7D 10/18/16 12/02/16 1 Day Ago Famotidine [Pepcid] 40 mg PO DAILY 10/18/16 12/02/16 1 Day Ago Loratadine [Allergy] 10 mg PO DAILY 10/18/16 12/02/16 1 Day Ago Phenylephrine HCl [Nasal [place]] 30 ml NS DAILY 10/18/16 12/02/16 1 Day Ago Trazodone HCl 100 mg PO QHS 10/18/16 12/02/16 1 Day Ago Previous Rx's Medication Instructions Recorded Lorazepam [Ativan] 1 mg PO BID #5 tablet 09/25/16 Hydrocodone/Acetaminophen [[place] 1 tab PO Q8H PRN #20 tab 12/02/16 5mg/325mg] Allergies Allergy/AdvReac Type Severity Reaction Status Date / Time gabapentin [From Neurontin] Allergy Intermediate HYPERSENSIT Verified 12/02/16 15:35 IVITY diphenhydramine Allergy Unknown HYPERSENSIT Verified 12/02/16 15:35 [DIPHENHYDRAMINE] IVITY Penicillins [PENICILLINS] Allergy Unknown HIVES Verified 12/02/16 15:35 [id number] Antimigraine Allergy Unknown HYPERSENSIT Verified 12/02/16 15:35 Agents IVITY [[id number] ANTIMIGRAINE AGENTS] cortisone Allergy ITCHING Verified 12/02/16 15:35 metoclopramide Allergy HYPERSENSIT Verified 12/02/16 15:35 IVITY promethazine Allergy HYPERSENSIT Verified 12/02/16 15:35 IVITY trimethoprim Allergy ITCHING Verified 12/02/16 15:35 dicyclomine HCl [From Bentyl] AdvReac Intermediate BEHAVIORAL Verified 12/02/16 15:35 CHANGES ketorolac tromethamine AdvReac Intermediate ITCHING Verified 12/02/16 15:35 [From Toradol] Sulfa (Sulfonamide AdvReac Intermediate ITCHING Verified 12/02/16 15:35 Antibiotics) cephalexin AdvReac VOMITING Verified 12/02/16 15:35 Travel Screening - Travel/Exposure Within Last 30 Days Have you traveled within the last 30 days?: No - Travel/Exposure Within Last Year Have you traveled outside the [place] in the last year?: No - Additonal Travel Details Have you been exposed to anyone with a communicable illness?: No - Travel Symptoms Symptom Screening: None Review of Systems Constitutional: Denies: Chills, Fever, Weakness Eyes: Denies: Eye discharge ENT: Denies: Congestion, Throat pain Respiratory: Denies: Cough, Dyspnea, Hemoptysis, Stridor, Wheezes Cardiovascular: Denies: Chest pain, Palpitations, Syncope Endocrine: Denies: Fatigue Gastrointestinal: Denies: Abdominal pain, Diarrhea, Nausea, Vomiting Musculoskeletal: Reports: As per HPI, Arthralgia, Joint swelling. Denies: Back pain, Myalgia, Neck pain Skin: Reports: Bruising (knees). Denies: Rash Neurological: Denies: Abnormal gait, Confusion, Headache, Numbness, Paresthesias , Tingling, Tremors, Vertigo, Weakness Psychiatric: Denies: Anxiety Hematological/Lymphatic: Denies: Anemia, Blood Clots, Easy bleeding, Easy bruising, Swollen glands Past Medical History - SOCIAL HISTORY Smoking Status: Current every day smoker Alcohol Use: None Drug Use: None - RESPIRATORY Hx Respiratory Disorders: Yes Hx Pulmonary Embolism: Yes - CARDIOVASCULAR Hx Cardio Disorders: Yes Hx Palpitations: Yes - NEURO Hx Neuro Disorders: Yes Hx Dizziness: Yes Hx Headaches: Yes (migraines) Hx Seizures: (unsure of, being tested for) - GI Hx GI Disorders: Yes Hx Reflux: Yes - Hx Genitourinary Disorders: No - ENDOCRINE Hx Endocrine Disorders: Yes Hx Diabetes: Yes (type II) Hx Thyroid Disease: No - MUSCULOSKELETAL Hx Musculoskeletal Disorders: Yes Comment:: rib was out of place - PSYCH Hx Psych Problems: Yes Hx Anxiety: Yes Hx Depression: Yes - HEMATOLOGY/ONCOLOGY Hx Hematology/Oncology Disorders: Yes Hx Anemia: Yes (approx 2001) Hx Blood Transfusions: Yes Hx Blood Transfusion Reaction: No Family Medical History Any Significant Family History?: Yes Hx Diabetes: Father, Brother/Sister Hx Heart Disease: Father Physical Exam - General General Appearance: Alert, Oriented x3, Cooperative, No acute distress Limitations: No limitations - Head Head exam: Atraumatic, Normocephalic, Normal inspection Head exam detail: Other (No visible or palpable injury to the head or face). negative: Abrasion, Contusion, General tenderness, Hematoma, Laceration - Eye Eye exam: Normal appearance, PERRL, EOMI. negative: Conjunctival injection, Periorbital swelling, Periorbital tenderness - ENT ENT exam: Normal exam, Mucous membranes moist, Normal external ear exam, Normal orophraynx, TM's normal bilaterally Ear exam: Normal external inspection. negative: External canal tenderness Nasal Exam: Normal inspection. negative: Discharge, Sinus tenderness Mouth exam: Normal external inspection, Tongue normal Teeth exam: Dental tenderness # (3missing filling). negative: Normal inspection Throat exam: Normal inspection. negative: Tonsillar erythema, Tonsillar exudate - Neck Neck exam: Normal inspection, Full ROM. negative: Tenderness - Respiratory Respiratory exam: Normal lung sounds bilaterally. negative: Respiratory distress - Cardiovascular Cardiovascular Exam: Regular rate, Normal rhythm, Normal heart sounds - GI/Abdominal GI/Abdominal exam: Soft, Normal bowel sounds. negative: Distended, Hypoactive bowel sounds, Tenderness - Rectal Rectal exam: Deferred - exam: Deferred - Extremities Extremities exam: Full ROM, Joint swelling, Normal capillary refill, Tenderness. negative: Normal inspection, Calf tenderness, Pedal edema Image of Full Body: 1 - anterior shoulder tenderness, no bruising or deformity, full ROM but with some pain 2 - full ROM bilateral knees, mild bilateral anterior bruising, no deformity, - Back Back exam: Reports: Normal inspection, Full ROM. Denies: CVA tenderness (R), CVA tenderness (L), Muscle spasm, Paraspinal tenderness, Rash noted, Tenderness , Vertebral tenderness - Neurological Neurological exam: Alert, Normal gait, Oriented X3, Reflexes normal - Psychiatric Psychiatric exam: Normal affect, Normal mood - Skin Skin exam: Abrasion, Dry, Intact, Warm Course Vital Signs 12/02/16 15:25 Temperature 98.2 F Pulse Rate 104 H Respiratory 18 Rate Blood Pressure 144/92 Pulse Ox 96 - Reevaluation(s) Reevaluation #1: No head or neck pain or injury by history or on examination. She is on Eliquis but she denies hitting her head, there isn't any visible or palpable injury. 12/02/16 15:43 Reevaluation #2: Preliminary review of the XR's of the knees bilateral and the shoulder demonstrated widespread degenerative changes. No visible fracture or dislocation. I will review the final readings when available. 12/02/16 16:21 Reevaluation #3: Final reads reviewed No fractures of the shoulder or knees. Subacute fractures of the three rib fractures noted with some visible healing. The results were reviewed with the patient including the ongoing healing of the ribs. I encouraged her to follow up closely with her PCP 12/02/16 16:39 12/02/16 16:45 Disposition Disposition: Discharge Clinical Impression: Left shoulder strain Qualifiers: Encounter type: initial encounter Qualified Code(s): S46.912A - Strain of unspecified muscle, fascia and tendon at shoulder and upper arm level, left arm , initial encounter Contusion of right knee Qualifiers: Encounter type: initial encounter Qualified Code(s): S80.01XA - Contusion of right knee, initial encounter Contusion of left knee Qualifiers: Encounter type: initial encounter Qualified Code(s): S80.02XA - Contusion of left knee, initial encounter Ribs, multiple fractures Qualifiers: Encounter type: initial encounter Fracture type: closed Laterality: left Qualified Code(s): S22.42XA - Multiple fractures of ribs, left side, initial encounter for closed fracture Disposition: Home, Self-Care Condition: (1) Good Instructions: Contusion in Adults (ED), Rib Fracture (ED) Additional Instructions: Rest Ice sore or bruised areas Return if you develop any new areas of pain or any uncontrolled pain Call your doctor for follow up this week to review this ER visit and the results of the tests Prescriptions: Hydrocodone/Acetaminophen [[place] 5mg/325mg] 1 tab PO Q8H PRN #20 tab PRN Reason: Pain - General Forms: Patient Portal Access Time of Disposition: 16:24
--- NOTE | 2016-12-03 12:34 | RADIOLOGY REPORT ---
EXAM: LEFT KNEE HISTORY: PATIENT FELL THIRTY MINUTES AGO. SLIPPED ON ICE INJURING BOTH KNEES. TECHNIQUE: Three views of the left knee were obtained. Comparison: Left knee series 07/11/12. Encounter: Initial. FINDINGS: Mild degenerative arthritis again evident. This is most involved in the lateral compartment and patellofemoral articulation. No definite acute fracture or dislocation seen and no definite joint effusion identified. Some vascular calcification is faintly seen. IMPRESSION: 1. DEGENERATIVE ARTHRITIS. 2. NO DEFINITE FRACTURE OR JOINT EFFUSION EVIDENT IN THE LEFT KNEE. JOB NUMBER: [id number] MTDD
--- NOTE | 2016-12-03 12:37 | RADIOLOGY REPORT ---
EXAM: RIGHT KNEE HISTORY: PATIENT FELL THIRTY MINUTES AGO INJURING BOTH KNEES. TECHNIQUE: Three views of the right knee were obtained. Comparison: Right knee series dated 05/17/14. Encounter: Initial. FINDINGS: Mild degenerative arthritis in the right knee. This is most evident in the lateral compartment and patellofemoral articulation. Some mild vascular calcification is seen. No definite acute fracture, dislocation or joint effusion seen. IMPRESSION: 1. DEGENERATIVE ARTHRITIS. 2. NO DEFINITE FRACTURE OR JOINT EFFUSION IDENTIFIED. JOB NUMBER: [id number] [facility]
--- NOTE | 2016-12-03 12:42 | RADIOLOGY REPORT ---
EXAM: LEFT SHOULDER HISTORY: PATIENT FELL ABOUT THIRTY MINUTES AGO SLIPPING ON THE ICE, INJURING LEFT SHOULDER. TECHNIQUE: Four views of the left shoulder were obtained. Comparison: No prior left shoulder series with which to compare. Encounter: Initial. FINDINGS: No definite fracture or dislocation of the left shoulder identified. No periarticular soft tissue calcification seen. There are displaced fractures of the left fifth through seventh ribs. These are new compared with the prior chest x-ray of 06/18/16, but there is a suggestion of some bony callus in these rib fractures and clinical correlation as to any recent left rib injury prior to today is suggested. IMPRESSION: 1. THE LEFT SHOULDER ITSELF APPEARS NEGATIVE. 2. DISPLACED FRACTURES OF THE LEFT FIFTH THROUGH SEVENTH RIBS PROBABLY WITH SOME HEALING SUGGESTING THAT THESE ARE SUBACUTE FRACTURES AND CLINICAL CORRELATION IS SUGGESTED. THESE WERE NOT APPARENT ON THE PRIOR CHEST X-RAY OF . JOB NUMBER: [id number] [facility]
== END 2016-12-02 16:52 | disposition home or self-care (01) ==
LOC: ER 15:23
DX: S46.912A Strain of unspecified muscle, fascia and tendon at shoulder and upper arm level, left arm, initial encounter (principal); S80.01XA Contusion of right knee, initial encounter; S80.02XA Contusion of left knee, initial encounter; S22.42XD Multiple fractures of ribs, left side, subsequent encounter for fracture with routine healing; M25.512 Pain in left shoulder; E11.9 Type 2 diabetes mellitus without complications; Z79.4 Long term (current) use of insulin; Z79.01 Long term (current) use of anticoagulants; W18.09XA Striking against other object with subsequent fall, initial encounter; Y92.008 Other place in unspecified non-institutional (private) residence as the place of occurrence of the external cause
CPT/HCPCS: 99283; 99284

== ENCOUNTER 2017-01-05 14:56 | Emergency (ER) | payer MEDICAID ==
--- NOTE | 2017-01-05 15:19 | Emergency Department Record ---
History of Present Illness - General Chief complaint: Flank Pain Stated complaint: FLANK PAIN Time Seen by Provider: 01/05/17 15:14 Source: Patient Mode of Arrival: Ambulatory Limitations: No limitations - History of Present Illness Initial comments: 51 yo female presents to ED with a CC of left sided lateral rib pain after assisting her family push a truck that was stuck. Patient reports taking Tylenol #3 for her symptoms which helped. Patient reports that she is on Eliquis for previous PE, denies other injury or chest pain symptoms. MD Complaint: Other (lateral rib pain) Onset/Timin -: Days(s) Radiation: L flank Severity: Moderate Severity scale (1-10): 8 Quality: Aching Consistency: Constant Improves with: Movement Worsens with: Movement Patient : No Associated Symptoms: Denies other symptoms - Related Data Home Medications Medication Instructions Recorded Confirmed Last Taken Glimepiride 6 mg PO DAILY 02/01/14 01/05/17 1 Day Ago Metformin HCl 1,000 mg PO BID 02/01/14 01/05/17 1 Day Ago Esomeprazole Magnesium [Nexium] 40 mg PO QAM 04/26/14 01/05/17 1 Day Ago Insulin Detemir [Levemir] 40 unit SQ QAM 04/26/14 01/05/17 1 Day Ago Insulin Regular, Human [Humulin R] 1 unit SC TIDAC 04/26/14 01/05/17 1 Day Ago Lisinopril [Prinivil] 20 mg PO DAILY 04/26/14 01/05/17 1 Day Ago Spironolactone [Aldactone] 50 mg PO DAILY 04/26/14 01/05/17 1 Day Ago Propranolol HCl [Inderal LA] 120 mg PO BID 05/16/14 01/05/17 1 Day Ago Insulin Detemir [Levemir] 65 units SQ QHS 04/05/15 01/05/17 1 Day Ago Topiramate [Topamax] 150 mg PO BID 04/05/15 01/05/17 1 Day Ago Exenatide Microspheres [Bydureon] 2 mg SQ Q7D vial 01/07/16 01/05/17 1 Day Ago Apixaban [Eliquis] 10 mg PO DAILY 06/18/16 01/05/17 1 Day Ago Venlafaxine HCl [Effexor Xr] 75 mg PO DAILY 09/25/16 01/05/17 1 Day Ago Amlodipine Besylate [Norvasc] 10 mg PO DAILY 10/18/16 01/05/17 1 Day Ago Atorvastatin Calcium [Lipitor] 20 mg PO DAILY 10/18/16 01/05/17 1 Day Ago Chlorthalidone 50 mg PO DAILY 10/18/16 01/05/17 1 Day Ago Clonidine Tts-2 [Catapres Tts-2] 1 patch TOP Q7D 10/18/16 01/05/17 1 Day Ago Famotidine [Pepcid] 40 mg PO DAILY 10/18/16 01/05/17 1 Day Ago Loratadine [Allergy] 10 mg PO DAILY 10/18/16 01/05/17 1 Day Ago Phenylephrine HCl [Nasal [place]] 30 ml NS DAILY 10/18/16 01/05/17 1 Day Ago Previous Rx's Medication Instructions Recorded Diazepam [Valium] 5 mg PO Q8H #10 tab 01/05/17 Allergies Allergy/AdvReac Type Severity Reaction Status Date / Time gabapentin [From Neurontin] Allergy Intermediate HYPERSENSIT Verified 01/05/17 15:05 IVITY diphenhydramine Allergy Unknown HYPERSENSIT Verified 01/05/17 15:05 [DIPHENHYDRAMINE] IVITY Penicillins [PENICILLINS] Allergy Unknown HIVES Verified 01/05/17 15:05 [id number] Antimigraine Allergy Unknown HYPERSENSIT Verified 01/05/17 15:05 Agents IVITY [[id number] ANTIMIGRAINE AGENTS] cortisone Allergy ITCHING Verified 01/05/17 15:05 metoclopramide Allergy HYPERSENSIT Verified 01/05/17 15:05 IVITY promethazine Allergy HYPERSENSIT Verified 01/05/17 15:05 IVITY trimethoprim Allergy ITCHING Verified 01/05/17 15:05 dicyclomine HCl [From Bentyl] AdvReac Intermediate BEHAVIORAL Verified 01/05/17 15:05 CHANGES ketorolac tromethamine AdvReac Intermediate ITCHING Verified 01/05/17 15:05 [From Toradol] Sulfa (Sulfonamide AdvReac Intermediate ITCHING Verified 01/05/17 15:05 Antibiotics) cephalexin AdvReac VOMITING Verified 01/05/17 15:05 Travel Screening - Travel/Exposure Within Last 30 Days Have you traveled within the last 30 days?: No - Travel/Exposure Within Last Year Have you traveled outside the [place] in the last year?: No - Additonal Travel Details Have you been exposed to anyone with a communicable illness?: No - Travel Symptoms Symptom Screening: None Review of Systems Constitutional: Denies: Chills, Fever, Malaise, Night sweats Eyes: Denies: Eye discharge, Eye pain ENT: Denies: Congestion, Ear pain Respiratory: Denies: Cough, Dyspnea Cardiovascular: Reports: Chest pain. Denies: Dyspnea on exertion, Palpitations Endocrine: Denies: Fatigue, Heat or cold intolerance Gastrointestinal: Denies: Abdominal pain, Nausea, Vomiting Genitourinary: Denies: Hematuria, Incontinence, Retention Musculoskeletal: Reports: Back pain. Denies: Arthralgia, Gout, Joint swelling Skin: Denies: Bruising, Change in color Neurological: Denies: Abnormal gait, Confusion, Headache, Seizure Psychiatric: Denies: Anxiety Hematological/Lymphatic: Reports: Blood Clots, Easy bleeding. Denies: Anemia Past Medical History - SOCIAL HISTORY Smoking Status: Current every day smoker Alcohol Use: Occassional Drug Use: None - RESPIRATORY Hx Respiratory Disorders: Yes Hx Pulmonary Embolism: Yes - CARDIOVASCULAR Hx Cardio Disorders: Yes Hx Palpitations: Yes - NEURO Hx Neuro Disorders: Yes Hx Dizziness: Yes Hx Headaches: Yes (migraines) Hx Seizures: (unsure of, being tested for) - GI Hx GI Disorders: Yes Hx Reflux: Yes - Hx Genitourinary Disorders: No - ENDOCRINE Hx Endocrine Disorders: Yes Hx Diabetes: Yes (type II) Hx Thyroid Disease: No - MUSCULOSKELETAL Hx Musculoskeletal Disorders: Yes Comment:: rib was out of place - PSYCH Hx Psych Problems: Yes Hx Anxiety: Yes Hx Depression: Yes - HEMATOLOGY/ONCOLOGY Hx Hematology/Oncology Disorders: Yes Hx Anemia: Yes (approx 2001) Hx Blood Transfusions: Yes Hx Blood Transfusion Reaction: No Family Medical History Any Significant Family History?: Yes Hx Diabetes: Father, Brother/Sister Hx Heart Disease: Father Physical Exam - General General Appearance: Alert, Oriented x3, Cooperative, Mild distress Limitations: No limitations - Head Head exam: Atraumatic, Normocephalic, Normal inspection Head exam detail: negative: Abrasion, Contusion, Sorto's sign, General tenderness, Hematoma, Laceration - Eye Eye exam: Normal appearance. negative: Conjunctival injection, Periorbital swelling, Periorbital tenderness, Scleral icterus - ENT Ear exam: negative: Auricular hematoma, Auricular trauma Nasal Exam: negative: Active bleeding, Discharge, Dried blood, Foreign body Mouth exam: negative: Drooling, Laceration, Muffled voice, Tongue elevation - Neck Neck exam: Normal inspection. negative: Meningismus, Tenderness - Respiratory Respiratory exam: Normal lung sounds bilaterally, Chest wall tenderness (left lower ribs laterally). negative: Rales, Respiratory distress, Rhonchi, Stridor - Cardiovascular Cardiovascular Exam: Regular rate, Normal rhythm, Normal heart sounds - GI/Abdominal GI/Abdominal exam: Soft. negative: Rebound, Rigid, Tenderness - Rectal Rectal exam: Deferred - exam: Deferred - Extremities Extremities exam: Normal inspection. negative: Pedal edema, Tenderness - Back Back exam: Reports: Paraspinal tenderness (Left paravertebral tenderness at the costo-vertebral junction lower thoracic spine). Denies: CVA tenderness (R), CVA tenderness (L) - Neurological Neurological exam: Alert, Normal gait, Oriented X3 - Psychiatric Psychiatric exam: Normal affect, Normal mood - Skin Skin exam: Normal color. negative: Abrasion Type of lesion: negative: abrasion Course Vital Signs 01/05/17 14:58 Temperature 98.2 F Pulse Rate 92 H Respiratory 17 Rate Blood Pressure 168/88 Pulse Ox 97 - Reevaluation(s) Reevaluation #1: 01/05/17 15:40 UA reviewed and is negative for blood/infection. Reevaluation #2: 01/05/17 16:24 CT Chest: Numerous healing rib fractures, nothing acute. Patient was updated on all results, reports that her symptoms are improved. Patient appears stable for discharge at this time. Disposition Disposition: Discharge Clinical Impression: Flank Pain Disposition: Home, Self-Care Condition: (2) Stable Instructions: Flank Pain (ED) Additional Instructions: Return to ED if your symptoms worsen or if you have any concerns. Valium as directed. Follow-up with your family doctor in 3-5 days as directed. Prescriptions: Diazepam [Valium] 5 mg PO Q8H #10 tab Forms: Patient Portal Access Time of Disposition: 16:28
[2017-01-05 15:35] LABS: URINE APPEARANCE CLEAR; URINE BILIRUBIN NEGATIVE (NEGATIVE); URINE BLOOD NEGATIVE (NEGATIVE); URINE COLOR YELLOW; URINE KETONE NEGATIVE (NEGATIVE); URINE LEUKOCYTE ESTERASE NEGATIVE (NEGATIVE); URINE NITRITE NEGATIVE (NEGATIVE); URINE PROTEIN TRACE (NEGATIVE); URINE UROBILINOGEN 0.2 E.U./dL (0.20 - 1.00)
[2017-01-05] MEDS ORDERED: DIAZEPAM 5 MG TABLET PO ONE (15:43)
== END 2017-01-05 16:35 | disposition home or self-care (01) ==
LOC: ER 14:56
DX: G89.11 Acute pain due to trauma (principal); R07.81 Pleurodynia; M54.6 Pain in thoracic spine; E11.9 Type 2 diabetes mellitus without complications; Z79.4 Long term (current) use of insulin; Z79.01 Long term (current) use of anticoagulants; Z86.711 Personal history of pulmonary embolism
CPT/HCPCS: 99283 ×2; 81003; 71250; J3490

== ENCOUNTER 2017-02-03 12:17 | Emergency (ER) | payer MEDICAID ==
--- NOTE | 2017-02-03 12:44 | Emergency Department Record ---
History of Present Illness - General Chief Complaint: Passed out Stated Complaint: PASSED OUT Time Seen by Provider: 02/03/17 12:26 Source: Patient Mode of Arrival: Wheelchair Limitations: No limitations - History of Present Illness Initial Comments: 51 yo female presents after collapsing in radiology. Her blood sugar dropped to 50. She has been lower recently. She did see her doctor yesterday. She states no adjustments were made in her diabetes medication. She reports her sugar was 60 just prior to yesterday's appointment. She has been dealing with about 2 months of abdominal pain. Her doctor was made aware yesterday and has referred her for outpatient tests. She has pain after eating. She has a history of HTN,DM, Migraines, anxiety and depression, DVT/PE on Eliquis, osteoarthritis, CAD. She has a history of numerous syncopal spells in the past with a internal monitor. She was evaluated many times by [facility] without a specific etiology found for syncope. Today however she was low on blood glucose at 50. After PO the recheck was 120. The patient reports some loss of appetite with the abdominal discomfort but no adjustments in medications MD Complaint: Other (Low blood sugar) Onset/Timin -: Hour(s) Prodromal Symptoms: Lightheaded Duration of Episode: 15 -: Second(s) Injuries Sustained Associated with Event: None Current Symptoms: None, Abdominal pain (2 months) Context: Other Treatments Prior to Arrival: None - [place] Coma Scale Eye Response: (4) Open spontaneously Motor Response: (6) Obeys commands Verbal Response: (5) Oriented [place] Total: 15 - Related Data Home Medications Medication Instructions Recorded Confirmed Last Taken Glimepiride 6 mg PO QHS 02/01/14 02/03/17 1 Day Ago ~01/04/17 Metformin HCl 1,000 mg PO BID 02/01/14 02/03/17 1 Day Ago ~01/04/17 Esomeprazole Magnesium [Nexium] 40 mg PO QAM 04/26/14 02/03/17 1 Day Ago ~01/04/17 Insulin Detemir [Levemir] 40 unit SQ QAM 04/26/14 02/03/17 1 Day Ago ~01/04/17 Insulin Regular, Human [Humulin R] 1 unit SC TIDAC 04/26/14 02/03/17 1 Day Ago ~01/04/17 Lisinopril [Prinivil] 20 mg PO DAILY 04/26/14 02/03/17 1 Day Ago ~01/04/17 Spironolactone [Aldactone] 50 mg PO DAILY 04/26/14 02/03/17 1 Day Ago ~01/04/17 Propranolol HCl [Inderal LA] 120 mg PO BID 05/16/14 02/03/17 1 Day Ago ~01/04/17 Insulin Detemir [Levemir] 65 units SQ QHS 04/05/15 02/03/17 1 Day Ago ~01/04/17 Topiramate [Topamax] 150 mg PO BID 04/05/15 02/03/17 1 Day Ago ~01/04/17 Exenatide Microspheres [Bydureon] 2 mg SQ Q7D vial 01/07/16 02/03/17 1 Day Ago ~01/04/17 Apixaban [Eliquis] 10 mg PO DAILY 06/18/16 02/03/17 1 Day Ago ~01/04/17 Venlafaxine HCl [Effexor Xr] 75 mg PO DAILY 09/25/16 02/03/17 1 Day Ago ~01/04/17 Amlodipine Besylate [Norvasc] 10 mg PO DAILY 10/18/16 02/03/17 1 Day Ago ~01/04/17 Atorvastatin Calcium [Lipitor] 20 mg PO DAILY 10/18/16 02/03/17 1 Day Ago ~01/04/17 Chlorthalidone 50 mg PO DAILY 10/18/16 02/03/17 1 Day Ago ~01/04/17 Clonidine Tts-2 [Catapres Tts-2] 1 patch TOP Q7D 10/18/16 02/03/17 1 Day Ago ~01/04/17 Famotidine [Pepcid] 40 mg PO DAILY 10/18/16 02/03/17 1 Day Ago ~01/04/17 Loratadine [Allergy] 10 mg PO DAILY 10/18/16 02/03/17 1 Day Ago ~01/04/17 Phenylephrine HCl [Nasal [place]] 30 ml NS DAILY 10/18/16 02/03/17 1 Day Ago ~01/04/17 Allergies Allergy/AdvReac Type Severity Reaction Status Date / Time gabapentin [From Neurontin] Allergy Intermediate HYPERSENSIT Verified 01/05/17 15:05 IVITY diphenhydramine Allergy Unknown HYPERSENSIT Verified 01/05/17 15:05 [DIPHENHYDRAMINE] IVITY Penicillins [PENICILLINS] Allergy Unknown HIVES Verified 01/05/17 15:05 [id number] Antimigraine Allergy Unknown HYPERSENSIT Verified 01/05/17 15:05 Agents IVITY [[id number] ANTIMIGRAINE AGENTS] cortisone Allergy ITCHING Verified 01/05/17 15:05 metoclopramide Allergy HYPERSENSIT Verified 01/05/17 15:05 IVITY promethazine Allergy HYPERSENSIT Verified 01/05/17 15:05 IVITY trimethoprim Allergy ITCHING Verified 01/05/17 15:05 dicyclomine HCl [From Bentyl] AdvReac Intermediate BEHAVIORAL Verified 01/05/17 15:05 CHANGES ketorolac tromethamine AdvReac Intermediate ITCHING Verified 01/05/17 15:05 [From Toradol] Sulfa (Sulfonamide AdvReac Intermediate ITCHING Verified 01/05/17 15:05 Antibiotics) cephalexin AdvReac VOMITING Verified 01/05/17 15:05 Travel Screening - Travel/Exposure Within Last 30 Days Have you traveled within the last 30 days?: No Review of Systems Constitutional: Denies: Chills, Fever, Malaise, Weakness Eyes: Denies: Eye discharge ENT: Denies: Congestion, Throat pain Respiratory: Denies: Cough, Dyspnea Cardiovascular: Reports: Syncope. Denies: Chest pain, Palpitations Endocrine: Denies: Fatigue, Polydipsia, Polyuria Gastrointestinal: Reports: Abdominal pain, Nausea, Vomiting. Denies: Diarrhea, Hematemesis, Hematochezia Genitourinary: Denies: Dysuria Musculoskeletal: Denies: Arthralgia, Back pain, Myalgia, Neck pain Neurological: Denies: Confusion, Headache, Numbness, Paresthesias, Seizure, Tingling, Tremors, Vertigo, Weakness Psychiatric: Denies: Anxiety Hematological/Lymphatic: Denies: Blood Clots, Easy bleeding, Easy bruising, Swollen glands Past Medical History - SOCIAL HISTORY Smoking Status: Current every day smoker Alcohol Use: None Drug Use: None - RESPIRATORY Hx Respiratory Disorders: Yes Hx Pulmonary Embolism: Yes - CARDIOVASCULAR Hx Cardio Disorders: Yes Hx Palpitations: Yes - NEURO Hx Neuro Disorders: Yes Hx Dizziness: Yes Hx Headaches: Yes (migraines) Hx Seizures: (unsure of, being tested for) - GI Hx GI Disorders: Yes Hx Reflux: Yes - Hx Genitourinary Disorders: No - ENDOCRINE Hx Endocrine Disorders: Yes Hx Diabetes: Yes (type II) Hx Thyroid Disease: No - MUSCULOSKELETAL Hx Musculoskeletal Disorders: Yes Comment:: rib was out of place - PSYCH Hx Psych Problems: Yes Hx Anxiety: Yes Hx Depression: Yes - HEMATOLOGY/ONCOLOGY Hx Hematology/Oncology Disorders: Yes Hx Anemia: Yes (approx 2001) Hx Blood Transfusions: Yes Hx Blood Transfusion Reaction: No Family Medical History Any Significant Family History?: Yes Hx Diabetes: Father, Brother/Sister Hx Heart Disease: Father Physical Exam - General General Appearance: Alert, Oriented x3, Cooperative, No acute distress Limitations: No limitations - Head Head exam: Atraumatic, Normocephalic, Normal inspection - Eye Eye exam: Normal appearance, PERRL. negative: Conjunctival injection, Periorbital swelling - ENT ENT exam: Normal exam, Mucous membranes moist Ear exam: Normal external inspection Nasal Exam: Normal inspection Mouth exam: Normal external inspection Teeth exam: Normal inspection Throat exam: Normal inspection - Neck Neck exam: Normal inspection, Full ROM. negative: Lymphadenopathy, Tenderness - Respiratory Respiratory exam: Normal lung sounds bilaterally. negative: Respiratory distress, Rhonchi, Stridor, Wheezes - Cardiovascular Cardiovascular Exam: Regular rate, Normal rhythm, Normal heart sounds Peripheral Pulses: 2+: Radial (R), Radial (L) - GI/Abdominal GI/Abdominal exam: Soft, Normal bowel sounds, Tenderness (mid upper abdominal tenderness). negative: Distended, Guarding, Rebound, Rigid - Rectal Rectal exam: Deferred - exam: Deferred - Extremities Extremities exam: Normal inspection, Full ROM, Normal capillary refill. negative: Tenderness - Back Back exam: Reports: Normal inspection, Full ROM. Denies: Muscle spasm, Rash noted, Tenderness - Neurological Neurological exam: Alert, Normal gait, Oriented X3 - Psychiatric Psychiatric exam: Normal affect, Normal mood. negative: Agitated, Anxious - Skin Skin exam: Dry, Intact, Normal color, Warm. negative: Cyanosis, Diaphoretic, Erythema Course Vital Signs 02/03/17 12:20 Temperature 98.1 F Pulse Rate 106 H Respiratory 18 Rate Blood Pressure 166/83 Pulse Ox 98 - Reevaluation(s) Reevaluation #1: EMR reviewed. Prior admission for syncope reviewed from 12/01/15 Cardiology Consult reviewed from 11/02/15 02/03/17 12:48 Reevaluation #2: No acute changes on the labs at this time. 02/03/17 13:34 Reevaluation #3: No acute changes on the Hepatic panel or Lipase 02/03/17 14:09 Reevaluation #4: The CT scan was negative for any acute process. Stable unchanged fatty liver, adrenal nodule, mild diverticulosis without diverticulitis. No obstruction. 02/03/17 15:53 Glucose is 111 02/03/17 15:57 Reevaluation #5: We discussed the results, follow up, close glucose monitoring She states her doctgor is planning to refer her to GI as well. I encourage that as well. 02/03/17 16:02 Procedures - EKG Initial Date: 02/03/17 Time: 12:41 EKG: No Acute Changes, Unchanged From Previous (06/18/16) EKG Detail: sinus at 106, Int normal, [place] normal, ST normal, Medical Decision Making - Lab Data Result diagrams: 02/03/17 12:55 02/03/17 12:55 Disposition Disposition: Discharge Clinical Impression: Hypoglycemia Abdominal pain Qualifiers: Abdominal location: left upper quadrant Qualified Code(s): R10.12 - Left upper quadrant pain Disposition: Home, Self-Care Condition: (1) Good Instructions: Diabetic Hypoglycemia (ED), Acute Abdominal Pain (ED) Additional Instructions: You will need to monitor your blood sugars at least 3 times daily and at bed time You will need to have a small meal or snack at bedtime. Return if you sugars continue to be low Call your doctor tomorrow to discuss your ER visit for blood sugar issues and your ongoing abdominal pain. Forms: Patient Portal Access Time of Disposition: 16:03
[2017-02-03] MEDS ORDERED: 0.9 % SODIUM CHLORIDE 1000ML 1,000 ML IV ONE (12:45)
[2017-02-03] MEDS ORDERED: ONDANSETRON HCL IV 4 MG/2 ML VIAL IVP ONE ×2 (12:45→14:54)
[2017-02-03 13:06] LABS: BASO % 0.1 % (0-6); EOS % 0.5 % (0-6); GRAN % 70.9 % (47-80); HEMATOCRIT 40.5 % (35.0-47.0); HEMOGLOBIN 12.7 gm/dl (11.6-16.0); LYMPH % 17.7 % (16-45); MEAN CELL VOLUME 81.3 fl (81-97); MEAN CORPUSCULAR HEMOGLOBIN 25.5 pg (27-33); MEAN CORPUSCULAR HGB CONC 31.4 g/dl (32-36); MEAN PLATELET VOLUME 9.2 fl (7.4-10.4); MONO % 10.8 % (0-9); PLATELET COUNT 316 K/uL (130-400); RED BLOOD COUNT 4.98 M/uL (3.80-5.40); RED CELL DISTRIBUTION WIDTH 16.5 % (11.5-14.5); WHITE BLOOD COUNT W/O DIFF 9.3 K/uL (4.2-12.2)
[2017-02-03] MEDS ORDERED: MORPHINE SULFATE 5 MG/ML PFS IVP ONE ×2 (13:09→14:54)
[2017-02-03 13:19] LABS: ANION GAP 10.7 (7-16); BLOOD UREA NITROGEN 12 mg/dL (7-17); CARBON DIOXIDE 21.3 mmol/L (22-30); CREATININE 0.5 mg/dL (0.52-1.04); EST GLOMERULAR FILTRATION RATE > 60 ml/min; GLUCOSE,RANDOM 101 mg/dL (70-110)
[2017-02-03 13:51] LABS: ALBUMIN 3.9 gm/dL (3.5-5.0); BILIRUBIN,DIRECT 0.4 mg/dL (0-0.3); BILIRUBIN,TOTAL 0.4 mg/dL (0.2-1.3)
[2017-02-03 16:06] LABS: URINE APPEARANCE CLEAR; URINE BILIRUBIN NEGATIVE (NEGATIVE); URINE BLOOD NEGATIVE (NEGATIVE); URINE COLOR YELLOW; URINE GLUCOSE (UA) NEGATIVE (NEGATIVE); URINE KETONE NEGATIVE (NEGATIVE); URINE LEUKOCYTE ESTERASE NEGATIVE (NEGATIVE); URINE NITRITE NEGATIVE (NEGATIVE); URINE PROTEIN NEGATIVE (NEGATIVE); URINE UROBILINOGEN 0.2 E.U./dL (0.20 - 1.00)
== END 2017-02-03 16:30 | disposition home or self-care (01) ==
LOC: ER 12:17
DX: E11.649 Type 2 diabetes mellitus with hypoglycemia without coma (principal); R10.12 Left upper quadrant pain; Z79.4 Long term (current) use of insulin; I10 Essential (primary) hypertension; Z79.01 Long term (current) use of anticoagulants; Z86.718 Personal history of other venous thrombosis and embolism
CPT/HCPCS: 36416; 74177; 76642; 80048; 80076; 81003; 82948; 83690; 85025; 93005; 93010; 96360; 96374; 96375; 96376; 99284; J2405; J7030

== ENCOUNTER 2017-03-04 08:51 | Emergency (ER) | payer MEDICAID ==
--- NOTE | 2017-03-04 09:08 | Emergency Department Record ---
History of Present Illness - General Chief complaint: Nausea, Vomiting, Diarrhea Stated complaint: LOOSE STOOLS/VOMITING Time Seen by Provider: 03/04/17 09:06 Source: Patient Mode of Arrival: Ambulatory Limitations: No limitations - History of Present Illness Initial comments: The patient is here due to a 1 week hx of intermittent nausea, vomiting, and diarrhea. The patient states her stools are loose and watery and denies any blood in the stool or vomit. She is having intermittent sharp stabbing LLQ AP. She denies any fever, chills, back pain, CP, or SOB. The patient states she went to the ER at [facility] 2 days ago for the same thing and was told she was dehydrated. About a week ago she did see her PCP who started her on Cipro and Flagyl for Diverticulutis but was told at [facility] that she did not have that issue and to stop the medicines. MD complaint: Diarrhea, Vomiting Onset/Timin -: Week(s) Description of Vomiting: Watery Description of Diarrhea: Water Associated Abdominal Pain: Yes Location: LLQ Radiation: Back, L flank Severity scale (1-10): 9 Quality: Stabbing Consistency: Intermittent Improves with: None Worsens with: None Associated Symptoms: Nausea/vomiting - Related Data Home Medications Medication Instructions Recorded Confirmed Last Taken Glimepiride 6 mg PO QHS 02/01/14 03/04/17 1 Day Ago ~01/04/17 Metformin HCl 1,000 mg PO BID 02/01/14 03/04/17 1 Day Ago ~01/04/17 Esomeprazole Magnesium [Nexium] 40 mg PO QAM 04/26/14 03/04/17 1 Day Ago ~01/04/17 Insulin Detemir [Levemir] 40 unit SQ QAM 04/26/14 03/04/17 1 Day Ago ~01/04/17 Insulin Regular, Human [Humulin R] 1 unit SC TIDAC 04/26/14 03/04/17 1 Day Ago ~01/04/17 Lisinopril [Prinivil] 20 mg PO DAILY 04/26/14 03/04/17 1 Day Ago ~01/04/17 Spironolactone [Aldactone] 50 mg PO DAILY 04/26/14 03/04/17 1 Day Ago ~01/04/17 Propranolol HCl [Inderal LA] 120 mg PO BID 05/16/14 03/04/17 1 Day Ago ~01/04/17 Insulin Detemir [Levemir] 65 units SQ QHS 04/05/15 03/04/17 1 Day Ago ~01/04/17 Topiramate [Topamax] 150 mg PO BID 04/05/15 03/04/17 1 Day Ago ~01/04/17 Exenatide Microspheres [Bydureon] 2 mg SQ Q7D vial 01/07/16 03/04/17 1 Day Ago ~01/04/17 Apixaban [Eliquis] 10 mg PO DAILY 06/18/16 03/04/17 1 Day Ago ~01/04/17 Venlafaxine HCl [Effexor Xr] 75 mg PO DAILY 09/25/16 03/04/17 1 Day Ago ~01/04/17 Amlodipine Besylate [Norvasc] 10 mg PO DAILY 10/18/16 03/04/17 1 Day Ago ~01/04/17 Atorvastatin Calcium [Lipitor] 20 mg PO DAILY 10/18/16 03/04/17 1 Day Ago ~01/04/17 Chlorthalidone 50 mg PO DAILY 10/18/16 03/04/17 1 Day Ago ~01/04/17 Clonidine Tts-2 [Catapres Tts-2] 1 patch TOP Q7D 10/18/16 03/04/17 1 Day Ago ~01/04/17 Famotidine [Pepcid] 40 mg PO DAILY 10/18/16 03/04/17 1 Day Ago ~01/04/17 Loratadine [Allergy] 10 mg PO DAILY 10/18/16 03/04/17 1 Day Ago ~01/04/17 Phenylephrine HCl [Nasal [place]] 30 ml NS DAILY 10/18/16 03/04/17 1 Day Ago ~01/04/17 Previous Rx's Medication Instructions Recorded Ondansetron [Zofran Odt] 4 mg SL .Q4-6H PRN #12 tab.rapdis 03/04/17 Allergies Allergy/AdvReac Type Severity Reaction Status Date / Time gabapentin [From Neurontin] Allergy Intermediate HYPERSENSIT Verified 03/04/17 08:56 IVITY diphenhydramine Allergy Unknown HYPERSENSIT Verified 03/04/17 08:56 [DIPHENHYDRAMINE] IVITY Penicillins [PENICILLINS] Allergy Unknown HIVES Verified 03/04/17 08:56 [id number] Antimigraine Allergy Unknown HYPERSENSIT Verified 03/04/17 08:56 Agents IVITY [[id number] ANTIMIGRAINE AGENTS] cortisone Allergy ITCHING Verified 03/04/17 08:56 metoclopramide Allergy HYPERSENSIT Verified 03/04/17 08:56 IVITY promethazine Allergy HYPERSENSIT Verified 03/04/17 08:56 IVITY trimethoprim Allergy ITCHING Verified 03/04/17 08:56 dicyclomine HCl [From Bentyl] AdvReac Intermediate BEHAVIORAL Verified 03/04/17 08:56 CHANGES ketorolac tromethamine AdvReac Intermediate ITCHING Verified 03/04/17 08:56 [From Toradol] Sulfa (Sulfonamide AdvReac Intermediate ITCHING Verified 03/04/17 08:56 Antibiotics) cephalexin AdvReac VOMITING Verified 03/04/17 08:56 Travel Screening - Travel/Exposure Within Last 30 Days Have you traveled within the last 30 days?: No Review of Systems Constitutional: Denies: Chills, Fever Eyes: Denies: Eye discharge ENT: Denies: Congestion Respiratory: Denies: Cough Cardiovascular: Denies: Chest pain Past Medical History - SOCIAL HISTORY Smoking Status: Current every day smoker Alcohol Use: None Drug Use: None - RESPIRATORY Hx Respiratory Disorders: Yes Hx Pulmonary Embolism: Yes - CARDIOVASCULAR Hx Cardio Disorders: Yes Hx Palpitations: Yes - NEURO Hx Neuro Disorders: Yes Hx Dizziness: Yes Hx Headaches: Yes (migraines) - GI Hx GI Disorders: Yes Hx Reflux: Yes - Hx Genitourinary Disorders: No - ENDOCRINE Hx Endocrine Disorders: Yes Hx Diabetes: Yes (type II) Hx Thyroid Disease: No - MUSCULOSKELETAL Hx Musculoskeletal Disorders: No - PSYCH Hx Psych Problems: Yes Hx Anxiety: Yes Hx Depression: Yes - HEMATOLOGY/ONCOLOGY Hx Hematology/Oncology Disorders: Yes Hx Anemia: Yes (approx 2001) Hx Blood Transfusions: Yes Hx Blood Transfusion Reaction: No Family Medical History Any Significant Family History?: Yes Hx Diabetes: Father, Brother/Sister Hx Heart Disease: Father Physical Exam - General General Appearance: Alert, Oriented x3, No acute distress - Head Head exam: Normocephalic, Normal inspection - Eye Eye exam: Normal appearance, PERRL - Neck Neck exam: Normal inspection, Full ROM. negative: Tenderness - Respiratory Respiratory exam: Normal lung sounds bilaterally. negative: Respiratory distress - Cardiovascular Cardiovascular Exam: Regular rate, Normal rhythm, Normal heart sounds - GI/Abdominal GI/Abdominal exam: Soft, Normal bowel sounds. negative: Guarding, Rebound, Rigid, Tenderness - Extremities Extremities exam: Normal inspection, Full ROM, Normal capillary refill. negative: Tenderness - Neurological Neurological exam: Alert, Normal gait. negative: Abnormal gait, Motor sensory deficit Course Vital Signs 03/04/17 08:57 Temperature 98.8 F Pulse Rate 79 Respiratory 20 Rate Blood Pressure 171/92 Pulse Ox 98 - Reevaluation(s) Reevaluation #1: The patient is doing well at this time. She has had no vomiting or diarrhea here in the ER and is ambulating normally. I did review her lab results from today which do not demonstrate any dehydration or significant infection. The patient on exam has a very soft abdomen and that coupled with the normal CT dated 02/28/17 leads me to believe the patient most likely does not have Diverticulitis. She also had a negative abdomen CT at [facility] on 02/25/17. The patient is requesting pain medicines but since her MAPS review does flag her for possible pharmacy and doctor shopping I explained to the patient that I will not be able to get her any narcotics. She is to see her PCP for further evaluation. 03/04/17 10:37 Reevaluation #2: The patient is also instructed to go home and to take her normal BP medicines for her HTN which she did not take today. 03/04/17 10:54 Medical Decision Making - Data Complexity MDM Data: Labs Ordered and/or Reviewed, Review and Summary of Old Record Discussed - Lab Data Result diagrams: 03/04/17 09:54 03/04/17 09:54 Disposition Disposition: Discharge Clinical Impression: Gastroenteritis Disposition: Home, Self-Care Condition: (1) Good Instructions: Acute Nausea and Vomiting (ED) Additional Instructions: Please continue your regular medicines and please use the Zofran for nausea. Please see your PCP for further evaluation. Return to the ER for any problems or new issues. Prescriptions: Ondansetron [Zofran Odt] 4 mg SL .Q4-6H PRN #12 tab.rapdis PRN Reason: Nausea Forms: Patient Portal Access Time of Disposition: 10:41
[2017-03-04] MEDS: 0.9 % SODIUM CHLORIDE 1,000 ML BAG IV ONE (09:52)
[2017-03-04] MEDS: ONDANSETRON HCL IV 4 MG/2 ML VIAL IV ONE (09:52)
[2017-03-04 10:00] LABS: BASO % 0.3 % (0-6); EOS % 1.2 % (0-6); GRAN % 63.8 % (47-80); HEMATOCRIT 38.2 % (35.0-47.0); HEMOGLOBIN 12.1 gm/dl (11.6-16.0); LYMPH % 23.9 % (16-45); MEAN CELL VOLUME 82.2 fl (81-97); MEAN CORPUSCULAR HGB CONC 31.7 g/dl (32-36); MEAN PLATELET VOLUME 9.8 fl (7.4-10.4); MONO % 10.8 % (0-9); PLATELET COUNT 320 K/uL (130-400); RED BLOOD COUNT 4.65 M/uL (3.80-5.40); RED CELL DISTRIBUTION WIDTH 18.2 % (11.5-14.5); WHITE BLOOD COUNT W/O DIFF 6.6 K/uL (4.2-12.2)
[2017-03-04 10:12] LABS: ALBUMIN 3.8 gm/dL (3.5-5.0); ALKALINE PHOSPHATASE 83 U/L (38-126); ALT/SGPT 21 U/L (9-52); ANION GAP 8.2 (7-16); AST/SGOT 22 U/L (14-36); BILIRUBIN,TOTAL 0.32 mg/dL (0.2-1.3); BLOOD UREA NITROGEN 9 mg/dL (7-17); CARBON DIOXIDE 20.8 mmol/L (22-30); CREATININE 0.5 mg/dL (0.52-1.04); EST GLOMERULAR FILTRATION RATE > 60 ml/min; GLUCOSE,RANDOM 291 mg/dL (70-110); LIPASE 61 U/L (23-300); TOTAL PROTEIN 7.1 gm/dL (6.3-8.2)
[2017-03-04 10:23] LABS: URINE APPEARANCE CLEAR; URINE BILIRUBIN NEGATIVE (NEGATIVE); URINE BLOOD NEGATIVE (NEGATIVE); URINE COLOR YELLOW; URINE GLUCOSE (UA) >=1000 mg/dL (NEGATIVE); URINE KETONE NEGATIVE (NEGATIVE); URINE LEUKOCYTE ESTERASE NEGATIVE (NEGATIVE); URINE NITRITE NEGATIVE (NEGATIVE); URINE PROTEIN NEGATIVE (NEGATIVE); URINE UROBILINOGEN 0.2 E.U./dL (0.20 - 1.00)
== END 2017-03-04 11:08 | disposition home or self-care (01) ==
LOC: ER 08:51
DX: K52.9 Noninfective gastroenteritis and colitis, unspecified (principal); R11.2 Nausea with vomiting, unspecified; R10.32 Left lower quadrant pain
CPT/HCPCS: 99284 ×2; 96374; 96361; 83690; 85025; 80076; 80048; 81003; 81025; J2405; J7030

== ENCOUNTER 2017-05-30 09:33 | Emergency (ER) | payer MEDICAID ==
[2017-05-30] MEDS ORDERED: HYDROCODONE/APAP 5/325MG TABLET PO ONE (09:53)
--- NOTE | 2017-05-30 10:36 | Emergency Department Record ---
History of Present Illness - General Chief complaint: Bite Insect/other Stated complaint: BEE STINGS Time Seen by Provider: 05/30/17 09:46 Source: Patient Mode of Arrival: Ambulatory Limitations: No limitations - History of Present Illness Initial comments: pt was stung by wasps on her left hand yesterday. it has continued to have swelling and pain. then her mother told her that she is very allergic to bee stings so she thought she better get in and get checked out. she has no asael, no throat swelling, no hives MD complaint: Insect bite/sting Onset/Timin -: Days(s) Hx Tetanus Toxoid Vaccination: Yes Year of Tetanus Vaccination: unsure Location: L hand Severity scale (1-10): 7 Quality: Other Consistency: Constant Improves with: None Worsens with: None Context: Witnessed insect bite Associated symptoms: Denies other symptoms Treatments Prior to Arrival: None - Related Data Previous Rx's Medication Instructions Recorded Ondansetron [Zofran Odt] 4 mg SL .Q4-6H PRN #12 tab.rapdis 03/04/17 Allergies Allergy/AdvReac Type Severity Reaction Status Date / Time gabapentin [From Neurontin] Allergy Intermediate HYPERSENSIT Verified 03/04/17 08:56 IVITY diphenhydramine Allergy Unknown HYPERSENSIT Verified 03/04/17 08:56 [DIPHENHYDRAMINE] IVITY Penicillins [PENICILLINS] Allergy Unknown HIVES Verified 03/04/17 08:56 [id number] Antimigraine Allergy Unknown HYPERSENSIT Verified 03/04/17 08:56 Agents IVITY [[id number] ANTIMIGRAINE AGENTS] cortisone Allergy ITCHING Verified 03/04/17 08:56 metoclopramide Allergy HYPERSENSIT Verified 03/04/17 08:56 IVITY promethazine Allergy HYPERSENSIT Verified 03/04/17 08:56 IVITY trimethoprim Allergy ITCHING Verified 03/04/17 08:56 dicyclomine HCl [From Bentyl] AdvReac Intermediate BEHAVIORAL Verified 03/04/17 08:56 CHANGES ketorolac tromethamine AdvReac Intermediate ITCHING Verified 03/04/17 08:56 [From Toradol] Sulfa (Sulfonamide AdvReac Intermediate ITCHING Verified 03/04/17 08:56 Antibiotics) cephalexin AdvReac VOMITING Verified 03/04/17 08:56 Travel Screening - Travel/Exposure Within Last 30 Days Have you traveled within the last 30 days?: No Review of Systems Reviewed: No additional complaints except as noted below Constitutional: Reports: As per HPI. Denies: Chills, Fever, Malaise, Night sweats, Weakness, Weight change Eyes: Reports: As per HPI. Denies: Eye discharge, Eye pain, Photophobia, Vision change ENT: Reports: As per HPI. Denies: Congestion, Dental pain, Ear pain, Epistaxis , Hearing loss, Throat pain Respiratory: Reports: As per HPI. Denies: Cough, Dyspnea, Hemoptysis, Stridor, Wheezes Cardiovascular: Reports: As per HPI. Denies: Arrhythmia, Chest pain, Dyspnea on exertion, Edema, Murmurs, Orthopnea, Palpitations, Paroxysmal nocturnal dyspnea, Rheumatic Fever, Syncope Endocrine: Reports: As per HPI. Denies: Fatigue, Heat or cold intolerance, Polydipsia, Polyuria Gastrointestinal: Reports: As per HPI. Denies: Abdominal pain, Constipation, Diarrhea, Hematemesis, Hematochezia, Melena, Nausea, Vomiting Genitourinary: Reports: As per HPI. Denies: Abnormal menses, Discharge, Dyspareunia, Dysuria, Frequency, Hematuria, Incontinence, Retention, Urgency Musculoskeletal: Reports: As per HPI. Denies: Arthralgia, Back pain, Gout, Joint swelling, Myalgia, Neck pain Skin: Reports: As per HPI. Denies: Bruising, Change in color, Change in hair/ nails, Lesions, Pruritus, Rash Neurological: Reports: As per HPI. Denies: Abnormal gait, Confusion, Headache, Numbness, Paresthesias, Seizure, Tingling, Tremors, Vertigo, Weakness Psychiatric: Reports: As per HPI. Denies: Anxiety, Auditory hallucinations, Depression, Homicidal thoughts, Suicidal thoughts, Visual hallucinations Hematological/Lymphatic: Reports: As per HPI. Denies: Anemia, Blood Clots, Easy bleeding, Easy bruising, Swollen glands Past Medical History - SOCIAL HISTORY Smoking Status: Current every day smoker Alcohol Use: None Drug Use: None - RESPIRATORY Hx Respiratory Disorders: Yes Hx Pulmonary Embolism: Yes - CARDIOVASCULAR Hx Cardio Disorders: Yes Hx Palpitations: Yes - NEURO Hx Neuro Disorders: Yes Hx Dizziness: Yes Hx Headaches: Yes (migraines) - GI Hx GI Disorders: Yes Hx Reflux: Yes - Hx Genitourinary Disorders: No - ENDOCRINE Hx Endocrine Disorders: Yes Hx Diabetes: Yes (type II) Hx Thyroid Disease: No - MUSCULOSKELETAL Hx Musculoskeletal Disorders: No Comment:: rib was out of place - PSYCH Hx Psych Problems: Yes Hx Anxiety: Yes Hx Depression: Yes - HEMATOLOGY/ONCOLOGY Hx Hematology/Oncology Disorders: Yes Hx Anemia: Yes (approx 2001) Hx Blood Transfusions: Yes Hx Blood Transfusion Reaction: No Family Medical History Any Significant Family History?: Yes Hx Diabetes: Father, Brother/Sister Hx Heart Disease: Father Physical Exam - General General Appearance: Alert, Oriented x3, Cooperative, Mild distress - Head Head exam: Normal inspection - Eye Eye exam: Normal appearance, PERRL, EOMI Pupils: Normal accommodation - ENT ENT exam: Normal exam, Mucous membranes moist, Normal external ear exam, Normal orophraynx Ear exam: Normal external inspection. negative: External canal tenderness Nasal Exam: Normal inspection. negative: Discharge, Sinus tenderness Mouth exam: Normal external inspection, Tongue normal Teeth exam: Normal inspection. negative: Dental caries Throat exam: Normal inspection. negative: Tonsillar erythema, Tonsillar exudate - Neck Neck exam: Normal inspection, Full ROM. negative: Tenderness - Respiratory Respiratory exam: Normal lung sounds bilaterally. negative: Respiratory distress - Cardiovascular Cardiovascular Exam: Regular rate, Normal rhythm, Normal heart sounds - GI/Abdominal GI/Abdominal exam: Soft, Normal bowel sounds. negative: Tenderness - Rectal Rectal exam: Deferred - exam: Deferred - Extremities Extremities exam: Full ROM, Normal capillary refill, Tenderness Image of Hand: 1 - swelling, tenderness, good pulses, good color - Back Back exam: Reports: Normal inspection, Full ROM. Denies: Muscle spasm, Rash noted, Tenderness - Neurological Neurological exam: Alert, Normal gait, Oriented X3, Reflexes normal - Psychiatric Psychiatric exam: Normal affect, Normal mood - Skin Skin exam: Dry, Intact, Normal color, Warm Course Vital Signs 05/30/17 09:36 Temperature 98.4 F Pulse Rate 88 Respiratory 16 Rate Blood Pressure 176/102 Pulse Ox 99 - Reevaluation(s) Reevaluation #1: 05/30/17 10:35 pt was able to get ring off. pt asked for something for pain Disposition Disposition: Discharge Clinical Impression: Wasp sting Qualifiers: Encounter type: initial encounter Injury intent: undetermined intent Qualified Code(s): T63.464A - Toxic effect of venom of wasps, undetermined, initial encounter Disposition: Home, Self-Care Condition: (1) Good Instructions: Insect Bite or Sting (ED) Additional Instructions: follow up with family doctor. return sooner if worse. ice and elevate Forms: Patient Portal Access Quality - Quality Measures Quality Measures: N/A - Blood Pressure Screening Does Patient Have Any of the Following: No Blood Pressure Classification: Hypertensive Reading Systolic Measurement: 176 Diastolic Measurement: 102 Screening for High Blood Pressure: < First Hypertensive BP, F/U Documented > [ G8950] First Hypertensive Follow-up Interventions: Follow-up with rescreen GT 1 day and LT 4 weeks.
== END 2017-05-30 10:49 | disposition home or self-care (01) ==
LOC: ER 09:33
DX: T63.464A Toxic effect of venom of wasps, undetermined, initial encounter (principal); M79.642 Pain in left hand; M79.89 Other specified soft tissue disorders
CPT/HCPCS: 99282

== ENCOUNTER 2017-10-11 10:18 | Emergency (ER) | payer MEDICAID ==
[2017-10-11] MEDS ORDERED: GUAIFENESIN/D-METH. 10 ML UDC PO ONE (11:19)
[2017-10-11 11:27] LABS: INFLUENZA A NEGATIVE (NEGATIVE); INFLUENZA B NEGATIVE (NEGATIVE)
--- NOTE | 2017-10-11 11:36 | Emergency Department Record ---
History of Present Illness - General Chief Complaint: Cough Stated Complaint: RIB INJURY Time Seen by Provider: 10/11/17 10:31 Mode of Arrival: Ambulatory - History of Present Illness Initial Comments: cough and right sided chest wall pain and she had one course of zpk told by family she has flu and cough is dry and she had body aches Onset/Timin -: Week(s) Severity: Moderate Severity scale (1-10): 8 Consistency: Intermittent - Related Data Home Medications Medication Instructions Recorded Confirmed Last Taken Insulin Glargine,Hum.rec.anlog 100 unit SQ DAILY 10/11/17 10/11/17 10/10/17 [Basaglar Kwikpen U-100] Previous Rx's Medication Instructions Recorded Ondansetron [Zofran Odt] 4 mg SL .Q4-6H PRN #12 tab.rapdis 03/04/17 Acetaminop W/ Codeine 300/30Mg 1 tab PO Q6H #10 tab 10/11/17 [Tylenol #3] Albuterol Sulfate [Ventolin Hfa] 1 - 2 puff IH .EVERY 4-6 HRS PRN 10/11/17 #1 inhaler Doxycycline Hyclate [Doxycycline] 100 mg PO BID #20 cap 10/11/17 Allergies Allergy/AdvReac Type Severity Reaction Status Date / Time gabapentin [From Neurontin] Allergy Intermediate HYPERSENSIT Verified 10/11/17 10:25 IVITY diphenhydramine Allergy Unknown HYPERSENSIT Verified 10/11/17 10:25 [DIPHENHYDRAMINE] IVITY Penicillins [PENICILLINS] Allergy Unknown HIVES Verified 10/11/17 10:25 [id number] Antimigraine Allergy Unknown HYPERSENSIT Verified 10/11/17 10:25 Agents IVITY [[id number] ANTIMIGRAINE AGENTS] cortisone Allergy ITCHING Verified 10/11/17 10:25 metoclopramide Allergy HYPERSENSIT Verified 10/11/17 10:25 IVITY promethazine Allergy HYPERSENSIT Verified 10/11/17 10:25 IVITY trimethoprim Allergy ITCHING Verified 10/11/17 10:25 dicyclomine HCl [From Bentyl] AdvReac Intermediate BEHAVIORAL Verified 10/11/17 10:25 CHANGES ketorolac tromethamine AdvReac Intermediate ITCHING Verified 10/11/17 10:25 [From Toradol] Sulfa (Sulfonamide AdvReac Intermediate ITCHING Verified 10/11/17 10:25 Antibiotics) cephalexin AdvReac VOMITING Verified 10/11/17 10:25 Travel Screening - Travel/Exposure Within Last 30 Days Have you traveled within the last 30 days?: No - Travel/Exposure Within Last Year Have you traveled outside the [place] in the last year?: No - Additonal Travel Details Have you been exposed to anyone with a communicable illness?: No - Travel Symptoms Symptom Screening: None Review of Systems Reviewed: No additional complaints except as noted below Constitutional: Reports: As per HPI. Denies: Chills, Fever, Malaise, Night sweats, Weakness, Weight change Eyes: Reports: As per HPI. Denies: Eye discharge, Eye pain, Photophobia, Vision change ENT: Reports: As per HPI, Congestion. Denies: Dental pain, Ear pain, Epistaxis , Hearing loss, Throat pain Respiratory: Reports: As per HPI, Cough. Denies: Dyspnea, Hemoptysis, Stridor, Wheezes Cardiovascular: Reports: As per HPI. Denies: Arrhythmia, Chest pain, Dyspnea on exertion, Edema, Murmurs, Orthopnea, Palpitations, Paroxysmal nocturnal dyspnea, Rheumatic Fever, Syncope Endocrine: Reports: As per HPI. Denies: Fatigue, Heat or cold intolerance, Polydipsia, Polyuria Gastrointestinal: Reports: As per HPI. Denies: Abdominal pain, Constipation, Diarrhea, Hematemesis, Hematochezia, Melena, Nausea, Vomiting Genitourinary: Reports: As per HPI. Denies: Abnormal menses, Discharge, Dyspareunia, Dysuria, Frequency, Hematuria, Incontinence, Retention, Urgency Musculoskeletal: Reports: As per HPI. Denies: Arthralgia, Back pain, Gout, Joint swelling, Myalgia, Neck pain Skin: Reports: As per HPI. Denies: Bruising, Change in color, Change in hair/ nails, Lesions, Pruritus, Rash Neurological: Reports: As per HPI. Denies: Abnormal gait, Confusion, Headache, Numbness, Paresthesias, Seizure, Tingling, Tremors, Vertigo, Weakness Psychiatric: Reports: As per HPI. Denies: Anxiety, Auditory hallucinations, Depression, Homicidal thoughts, Suicidal thoughts, Visual hallucinations Hematological/Lymphatic: Reports: As per HPI. Denies: Anemia, Blood Clots, Easy bleeding, Easy bruising, Swollen glands Past Medical History - SOCIAL HISTORY Smoking Status: Current every day smoker Alcohol Use: Occasional Drug Use: None - RESPIRATORY Hx Respiratory Disorders: Yes Hx Pulmonary Embolism: Yes (3 years ago) - CARDIOVASCULAR Hx Cardio Disorders: Yes Hx Deep Vein Thrombosis: Yes (2013, taking coumadin) - NEURO Hx Neuro Disorders: Yes Hx Dizziness: Yes Hx Headaches: Yes (migraines) - GI Hx GI Disorders: Yes Hx Reflux: Yes - Hx Genitourinary Disorders: No - ENDOCRINE Hx Endocrine Disorders: Yes Hx Diabetes: Yes (sugars run high) Hx Thyroid Disease: No - MUSCULOSKELETAL Hx Musculoskeletal Disorders: No Hx Arthritis: Yes (knees) - PSYCH Hx Psych Problems: Yes Hx Anxiety: Yes Hx Depression: Yes - HEMATOLOGY/ONCOLOGY Hx Hematology/Oncology Disorders: Yes Hx Anemia: Yes (approx 2001) Hx Blood Transfusions: Yes Hx Blood Transfusion Reaction: No Family Medical History Any Significant Family History?: Yes Hx Diabetes: Father, Brother/Sister Hx Heart Disease: Father Physical Exam - General General Appearance: Alert, Oriented x3, Cooperative, No acute distress - Head Head exam: Normal inspection - Eye Eye exam: Normal appearance, PERRL Pupils: Normal accommodation - ENT ENT exam: Normal exam, Mucous membranes moist, Normal external ear exam, Normal orophraynx, TM's normal bilaterally Ear exam: Normal external inspection. negative: External canal tenderness Nasal Exam: Normal inspection. negative: Discharge, Sinus tenderness Mouth exam: Normal external inspection, Tongue normal Teeth exam: Normal inspection. negative: Dental caries Throat exam: Normal inspection. negative: Tonsillar erythema, Tonsillar exudate - Neck Neck exam: Normal inspection, Full ROM. negative: Tenderness - Respiratory Respiratory exam: Normal lung sounds bilaterally. negative: Respiratory distress - Cardiovascular Cardiovascular Exam: Regular rate, Normal rhythm, Normal heart sounds - GI/Abdominal GI/Abdominal exam: Soft, Normal bowel sounds. negative: Tenderness - Rectal Rectal exam: Deferred - exam: Deferred - Extremities Extremities exam: Normal inspection, Full ROM, Normal capillary refill. negative: Tenderness - Back Back exam: Reports: Normal inspection, Full ROM. Denies: Muscle spasm, Rash noted, Tenderness - Neurological Neurological exam: Alert, Normal gait, Oriented X3, Reflexes normal - Psychiatric Psychiatric exam: Normal affect, Normal mood - Skin Skin exam: Dry, Intact, Normal color, Warm Course Vital Signs 10/11/17 10:30 Temperature 98.4 F Pulse Rate 113 H Respiratory 16 Rate Blood Pressure 179/91 Pulse Ox 97 - Reevaluation(s) Reevaluation #1: talked to patient and she will cover her glucose when she gets home 10/11/17 11:45 Medical Decision Making - Data Complexity MDM Data: Labs Ordered and/or Reviewed, X-Ray Ordered and/or Reviewed - Lab Data Lab Results 10/11/17 10/11/17 Range/Units 10:43 11:00 POC Glucose 337 H (70-110) mg/dL Influenza Type A Ag Negative (NEGATIVE) Influenza Type B Ag Negative (NEGATIVE) Disposition Clinical Impression: Bronchitis Disposition: Home, Self-Care Condition: (1) Good Instructions: Acute Bronchitis (ED) Additional Instructions: follow up with family in 3 days home DM 10 ml every 4 hours Prescriptions: Acetaminop W/ Codeine 300/30Mg [Tylenol #3] 1 tab PO Q6H #10 tab Albuterol Sulfate [Ventolin Hfa] 1 - 2 puff IH .EVERY 4-6 HRS PRN #1 inhaler PRN Reason: Wheezing Doxycycline Hyclate [Doxycycline] 100 mg PO BID #20 cap Time of Disposition: 11:46 Quality - Quality Measures Quality Measures: N/A - Blood Pressure Screening Does Patient Have Any of the Following: No, Active Dx of HTN Blood Pressure Classification: Hypertensive Reading Systolic Measurement: 179 Diastolic Measurement: 91 Screening for High Blood Pressure: Patient Exclusion, Hx of HTN [G9744]
--- NOTE | 2017-10-11 13:38 | RADIOLOGY REPORT ---
DATE: 10/11/2017. EXAM: CHEST, TWO VIEWS. COMPARISON: 06/18/2016. HISTORY: Cough and congestion for two weeks. Anterior right-sided rib pain. No known injury. TECHNIQUE: Two views of the chest were obtained. FINDINGS: The heart is not enlarged. Incidental note is made of a loop recorder overlying the cardiomediastinal silhouette. The lungs and pleural spaces are clear. Mild degenerative change of the thoracic spine. Old left-sided rib fractures. IMPRESSION: NO ACUTE CARDIOPULMONARY ABNORMALITY. JOB NUMBER: [id number] MTDD
== END 2017-10-11 11:52 | disposition home or self-care (01) ==
LOC: ER 10:18
DX: J20.9 Acute bronchitis, unspecified (principal); E11.9 Type 2 diabetes mellitus without complications; Z79.4 Long term (current) use of insulin; F17.210 Nicotine dependence, cigarettes, uncomplicated; Z79.01 Long term (current) use of anticoagulants
CPT/HCPCS: 36416; 71046; 82948; 87400; 99283; 99284

== ENCOUNTER 2018-05-14 07:51 | Emergency (ER) | payer MEDICAID ==
[2018-05-14] MEDS ORDERED: ORPHENADRINE CITRATE 60MG/2ML VIAL IM ONE (08:19)
[2018-05-14] MEDS ORDERED: METHYLPREDNISOLONE PF 125MG/VIAL IM ONE (08:19)
[2018-05-14] MEDS ORDERED: HYDROCODONE/APAP 5/325MG TABLET PO ONE (08:19)
--- NOTE | 2018-05-14 08:25 | Emergency Department Record ---
History of Present Illness - General Chief Complaint: Back Pain/Injury Stated Complaint: BACK PAIN Time Seen by Provider: 05/14/18 08:05 Source: Patient Mode of Arrival: Ambulatory Limitations: No limitations - History of Present Illness Initial Comments: pt has increased back pain that radiates down her r leg. she has occasional intermittent numbness in r leg. no problems with bowel or bladder. she sees dr allen for this and is being scheduled for injections but not till july. she is out of medicine MD Complaint: Back pain Onset/Timin -: Month(s) Similar Symptoms Previously: Yes Place: Home Radiation: Right leg Severity scale (1-10): 8 Quality: Aching, Sharp Consistency: Constant, Intermittent Improves With: None Worsens With: None Context: Unknown Associated Symptoms: Denies other symptoms - Related Data Home Medications Medication Instructions Recorded Confirmed Last Taken Acetaminop W/ Codeine 300/60Mg 300 mg PO Q6H PRN 05/14/18 05/14/18 Unknown [Acetaminophen-Cod #4 Tablet] Previous Rx's Medication Instructions Recorded Albuterol Sulfate [Ventolin Hfa] 1 - 2 puff IH .EVERY 4-6 HRS PRN 10/11/17 #1 inhaler Diazepam [Valium] 5 mg PO Q8H #10 tab 05/14/18 Hydrocodone/APAP 5/325Mg [Maxbass 1 each PO Q6H #8 tab 05/14/18 5Mg/325Mg] Allergies Allergy/AdvReac Type Severity Reaction Status Date / Time gabapentin [From Neurontin] Allergy Intermediate HYPERSENSIT Verified 10/11/17 10:25 IVITY diphenhydramine Allergy Unknown HYPERSENSIT Verified 10/11/17 10:25 [DIPHENHYDRAMINE] IVITY Penicillins [PENICILLINS] Allergy Unknown HIVES Verified 10/11/17 10:25 [id number] Antimigraine Allergy Unknown HYPERSENSIT Verified 10/11/17 10:25 Agents IVITY [[id number] ANTIMIGRAINE AGENTS] cortisone Allergy ITCHING Verified 10/11/17 10:25 metoclopramide Allergy HYPERSENSIT Verified 10/11/17 10:25 IVITY promethazine Allergy HYPERSENSIT Verified 10/11/17 10:25 IVITY trimethoprim Allergy ITCHING Verified 10/11/17 10:25 dicyclomine HCl [From Bentyl] AdvReac Intermediate BEHAVIORAL Verified 10/11/17 10:25 CHANGES ketorolac tromethamine AdvReac Intermediate ITCHING Verified 10/11/17 10:25 [From Toradol] Sulfa (Sulfonamide AdvReac Intermediate ITCHING Verified 10/11/17 10:25 Antibiotics) cephalexin AdvReac VOMITING Verified 10/11/17 10:25 Travel Screening - Travel/Exposure Within Last 30 Days Have you traveled within the last 30 days?: No Review of Systems Reviewed: No additional complaints except as noted below Constitutional: Reports: As per HPI. Denies: Chills, Fever, Malaise, Night sweats, Weakness, Weight change Eyes: Reports: As per HPI. Denies: Eye discharge, Eye pain, Photophobia, Vision change ENT: Reports: As per HPI. Denies: Congestion, Dental pain, Ear pain, Epistaxis , Hearing loss, Throat pain Respiratory: Reports: As per HPI. Denies: Cough, Dyspnea, Hemoptysis, Stridor, Wheezes Cardiovascular: Reports: As per HPI. Denies: Arrhythmia, Chest pain, Dyspnea on exertion, Edema, Murmurs, Orthopnea, Palpitations, Paroxysmal nocturnal dyspnea, Rheumatic Fever, Syncope Endocrine: Reports: As per HPI. Denies: Fatigue, Heat or cold intolerance, Polydipsia, Polyuria Gastrointestinal: Reports: As per HPI. Denies: Abdominal pain, Constipation, Diarrhea, Hematemesis, Hematochezia, Melena, Nausea, Vomiting Genitourinary: Reports: As per HPI. Denies: Abnormal menses, Discharge, Dyspareunia, Dysuria, Frequency, Hematuria, Incontinence, Retention, Urgency Musculoskeletal: Reports: As per HPI, Back pain. Denies: Arthralgia, Gout, Joint swelling, Myalgia, Neck pain Skin: Reports: As per HPI. Denies: Bruising, Change in color, Change in hair/ nails, Lesions, Pruritus, Rash Neurological: Reports: As per HPI. Denies: Abnormal gait, Confusion, Headache, Numbness, Paresthesias, Seizure, Tingling, Tremors, Vertigo, Weakness Psychiatric: Reports: As per HPI. Denies: Anxiety, Auditory hallucinations, Depression, Homicidal thoughts, Suicidal thoughts, Visual hallucinations Hematological/Lymphatic: Reports: As per HPI. Denies: Anemia, Blood Clots, Easy bleeding, Easy bruising, Swollen glands Past Medical History - SOCIAL HISTORY Smoking Status: Current every day smoker - RESPIRATORY Hx Respiratory Disorders: Yes Hx Pulmonary Embolism: Yes (3 years ago) - CARDIOVASCULAR Hx Cardio Disorders: Yes Hx Deep Vein Thrombosis: Yes (2013, taking coumadin) - NEURO Hx Neuro Disorders: Yes Hx Dizziness: Yes Hx Headaches: Yes (migraines) - GI Hx GI Disorders: Yes Hx Reflux: Yes - Hx Genitourinary Disorders: No - ENDOCRINE Hx Endocrine Disorders: Yes Hx Diabetes: Yes (sugars run high) Hx Thyroid Disease: No - MUSCULOSKELETAL Hx Musculoskeletal Disorders: Yes Hx Arthritis: Yes (knees) - PSYCH Hx Psych Problems: Yes Hx Anxiety: Yes Hx Depression: Yes - HEMATOLOGY/ONCOLOGY Hx Hematology/Oncology Disorders: Yes Hx Anemia: Yes (approx 2001) Hx Blood Transfusions: Yes Hx Blood Transfusion Reaction: No Family Medical History Any Significant Family History?: Yes Hx Diabetes: Father, Brother/Sister Hx Heart Disease: Father Physical Exam - General General Appearance: Alert, Oriented x3, Cooperative, Mild distress, Anxious, Other (tearful) - Head Head exam: Normal inspection - Eye Eye exam: Normal appearance, PERRL, EOMI Pupils: Normal accommodation - ENT ENT exam: Normal exam, Mucous membranes moist, Normal external ear exam, Normal orophraynx Ear exam: Normal external inspection. negative: External canal tenderness Nasal Exam: Normal inspection. negative: Discharge, Sinus tenderness Mouth exam: Normal external inspection, Tongue normal Teeth exam: Normal inspection. negative: Dental caries Throat exam: Normal inspection. negative: Tonsillar erythema, Tonsillar exudate - Neck Neck exam: Normal inspection, Full ROM. negative: Tenderness - Respiratory Respiratory exam: Normal lung sounds bilaterally. negative: Respiratory distress - Cardiovascular Cardiovascular Exam: Regular rate, Normal rhythm, Normal heart sounds - GI/Abdominal GI/Abdominal exam: Soft, Normal bowel sounds. negative: Tenderness - Rectal Rectal exam: Deferred - exam: Deferred - Extremities Extremities exam: Normal inspection, Full ROM, Normal capillary refill. negative: Tenderness - Back Back exam: Reports: Normal inspection, Full ROM. Denies: Muscle spasm, Rash noted, Tenderness - Neurological Neurological exam: Alert, CN II-XII intact, Normal gait, Oriented X3 - Psychiatric Psychiatric exam: Normal affect, Normal mood - Skin Skin exam: Dry, Intact, Normal color, Warm Course Vital Signs 05/14/18 07:53 Temperature 97.5 F L Pulse Rate 136 H Respiratory 20 Rate Blood Pressure 157/86 Pulse Ox 98 Disposition Disposition: Discharge Clinical Impression: Lumbar radicular pain Disposition: Home, Self-Care Condition: (1) Good Instructions: Lumbar Radiculopathy (ED) Additional Instructions: follow up with family doctor. rest return sooner if worse. push fluids. moist heat Prescriptions: Diazepam [Valium] 5 mg PO Q8H #10 tab Hydrocodone/APAP 5/325Mg [Maxbass 5Mg/325Mg] 1 each PO Q6H #8 tab Forms: Patient Portal Access Quality - Quality Measures Quality Measures: N/A - Blunt Head Trauma - Adult ICD10 Codes Entered: Yes - Blood Pressure Screening Does Patient Have Any of the Following: No Blood Pressure Classification: Pre-Hypertensive BP Reading Systolic Measurement: 157 Diastolic Measurement: 86 Screening for High Blood Pressure: < Pre-Hypertensive BP, F/U Documented > [ [id number]] Pre-Hypertensive Follow-up Interventions: Follow-up with rescreen every year.
== END 2018-05-14 09:38 | disposition home or self-care (01) ==
LOC: ER 07:51
DX: M54.16 Radiculopathy, lumbar region (principal); R20.0 Anesthesia of skin; E11.9 Type 2 diabetes mellitus without complications; F17.210 Nicotine dependence, cigarettes, uncomplicated; Z79.84 Long term (current) use of oral hypoglycemic drugs; Z79.01 Long term (current) use of anticoagulants
CPT/HCPCS: 96372; 99283; J2360; J2930